=== PATIENT | female | born 1935 | race Caucasian/White ===

== ENCOUNTER 2018-03-18 11:24 | Outpatient (CLI) | payer MEDICARE, BC, SELFPAY ==
--- NOTE | 2018-03-18 11:55 | DI.RAD_ITS ---
SYMPTOM/DIAGNOSIS: UPPER BACK PAIN, DORSALGIA, M54.9, EX SMOKER, THORACIC PAIN , M54.6 PA AND LATERAL CHEST: The heart is not enlarged. The lungs appear clear and well expanded with probable changes of COPD. No pleural effusion is seen. CONCLUSION: No evidence of acute disease. THORACIC SPINE: Three views were obtained. There is a slight left convex thoracic scoliosis. There is loss of intervertebral disc space height throughout the thoracic region. No compression fracture identified. Mild endplate degenerative spurring noted. CONCLUSION: DJD of the thoracic spine.
== END 2018-03-18 11:44 ==
PROVIDERS: PCP Family Medicine; Visit Provider Family Medicine
DX: M47.814 Spondylosis without myelopathy or radiculopathy, thoracic region (principal); M54.6 Pain in thoracic spine; Z87.891 Personal history of nicotine dependence
CPT/HCPCS: 71046; 72072

== ENCOUNTER 2018-10-02 01:36 | Outpatient (CLI) | payer MEDICARE, BC, SELFPAY ==
[2018-10-02 11:12] LABS: ALT 25 U/L (12-78); AST 23 U/L (15-37); Albumin 3.7 g/dL (3.4-5.0); Alkaline Phosphatase 134 U/L (46-116); Anion Gap 10.1 mmol/L (3-11); BUN 13 mg/dL (7-18); Bilirubin, Total 0.4 mg/dL (0.2-1.0); CO2 28.9 mmol/L (21.0-32.0); CREATININE 0.76 mg/dL (0.55-1.02); Calcium 9.3 mg/dL (8.5-10.1); Calculated LDL 147; Chloride 95 mmol/L (98-107); Cholesterol 237 mg/dL (50-200); Glucose 92 mg/dL (70-100); HDL Cholesterol 78 mg/dL (40-60); Potassium 3.6 mmol/L (3.5-5.1); Sodium 134 mmol/L (136-145); Total Protein 6.9 g/dL (6.4-8.2); Triglyceride 60 mg/dL (30-150)
== END 2018-10-02 01:56 ==
PROVIDERS: PCP Family Medicine; Visit Provider Family Medicine
DX: I10 Essential (primary) hypertension (principal); E78.00 Pure hypercholesterolemia, unspecified
CPT/HCPCS: 36415; 80053; 80061; 83721

== ENCOUNTER 2018-10-21 14:57 | Outpatient (CLI) | payer MEDICARE, BC, SELFPAY ==
--- NOTE | 2018-10-21 12:00 | DI.RAD_ITS ---
SYMPTOM/DIAGNOSIS: LOW BACK PAIN S/P FALL N54.5 LUMBAR SPINE: There is no evidence of an acute fracture. There is disc space narrowing seen at an end plate osteophyte formation seen at L1-2 and L4-5. Facet degenerative changes are seen greatest at L5-S1. No spondylolysis or spondylolisthesis is seen. The aorta shows calcification and is normal in diameter. There is a calcified uterine fibroid. IMPRESSION: Degenerative change. No acute abnormality
== END 2018-10-21 15:17 ==
PROVIDERS: PCP Family Medicine; Visit Provider Family Medicine
DX: M54.5 Low back pain (principal); W19.XXXA Unspecified fall, initial encounter; M47.817 Spondylosis without myelopathy or radiculopathy, lumbosacral region
CPT/HCPCS: 72110

== ENCOUNTER 2019-08-15 09:47 | Outpatient (CLI) | payer MEDICARE, BC, SELFPAY ==
--- NOTE | 2019-08-15 11:02 | DI.RAD_ITS ---
EXAM: XR WRIST, hand and forearm RT COMPLETE CLINICAL HISTORY: wrist, hand, forearm bruised pain s/p fall, W19.XXXA. TECHNIQUE: 2D digital imaging was performed. COMPARISON: XR HAND RT COMPLETE from 08/15/2019 XR FOREARM RT from 08/15/2019 FINDINGS: BONES: There is a nondisplaced fracture of the distal metaphysis of the right radius. No bony destru ctive lesion is seen. The bones are osteopenic. JOINTS: The carpal bones are normally aligned. Degenerative changes are seen within the wrist and azul d. The findings are most marked at the 1st carpometacarpal joint. SOFT TISSUE: Soft tissue swelling around the wrist. IMPRESSION: Nondisplaced fracture of the distal metaphysis of the right radius. DATA REPOSITORY: RADIATION DOSE DELIVERED:
== END 2019-08-15 10:07 ==
PROVIDERS: PCP Family Medicine; Visit Provider Nurse Practitioner Family
DX: M79.641 Pain in right hand (principal); M79.631 Pain in right forearm; M25.531 Pain in right wrist; S52.591A Other fractures of lower end of right radius, initial encounter for closed fracture; W19.XXXA Unspecified fall, initial encounter; M18.11 Unilateral primary osteoarthritis of first carpometacarpal joint, right hand; M79.89 Other specified soft tissue disorders; M85.88 Other specified disorders of bone density and structure, other site
CPT/HCPCS: 73090; 73110; 73130

== ENCOUNTER 2019-08-27 10:57 | Outpatient (CLI) | payer MEDICARE, BC, SELFPAY ==
--- NOTE | 2019-08-27 10:30 | DI.RAD_ITS ---
EXAM: XR WRIST RT LIMITED CLINICAL HISTORY: f/u TECHNIQUE: COMPARISON: XR WRIST RT COMPLETE from 08/15/2019 FINDINGS: Two views were obtained. Previously described fracture of the distal radius is again noted with no g ross interval change in alignment of the fracture fragments comparison with previous examination of A pril . IMPRESSION:
== END 2019-08-27 11:17 ==
PROVIDERS: PCP Family Medicine; Referring Provider Nurse Practitioner Family; Visit Provider Orthopaedic Surgery
DX: S52.591D Other fractures of lower end of right radius, subsequent encounter for closed fracture with routine healing (principal); S52.91XA Unspecified fracture of right forearm, initial encounter for closed fracture; W19.XXXA Unspecified fall, initial encounter; I10 Essential (primary) hypertension
CPT/HCPCS: 99201; 99213; 73100; L3908

== ENCOUNTER 2019-09-24 09:57 | Outpatient (CLI) | payer MEDICARE, BC, SELFPAY ==
--- NOTE | 2019-09-24 09:30 | DI.RAD_ITS ---
EXAM: XR WRIST RT COMPLETE INDICATION: f/u. COMPARISON: CR XR WRIST RT LIMITED from 08/27/2019 TECHNIQUE: 2D digital imaging was performed. FINDINGS: Has been no change in alignment of the intra-articular distal radial fracture. There is increased c allus formation around the fracture site. Severe degenerative changes are again noted at the 1st car pal metacarpal joint. DATA REPOSITORY: RADIATION DOSE DELIVERED:
== END 2019-09-24 10:17 ==
PROVIDERS: PCP Family Medicine; Referring Provider Family Medicine; Visit Provider Orthopaedic Surgery
DX: S52.591D Other fractures of lower end of right radius, subsequent encounter for closed fracture with routine healing (principal); M18.11 Unilateral primary osteoarthritis of first carpometacarpal joint, right hand; S52.91XD Unspecified fracture of right forearm, subsequent encounter for closed fracture with routine healing; X58.XXXD Exposure to other specified factors, subsequent encounter; I10 Essential (primary) hypertension
CPT/HCPCS: 99213; 73110

== ENCOUNTER 2020-04-08 05:19 | Outpatient (CLI) | payer MEDICARE, BC, SELFPAY ==
[2020-04-08 10:43] LABS: HCT 41.5 % (36.0-46.0); HGB 14.4 g/dL (11.2-15.7); MCH 32.7 pg (27.0-33.0); MCHC 34.7 % (32.0-36.0); MCV 94.1 fL (80-95); MPV 8.6 fL (8.0-11.0); Platelet Count 326 10^3/uL (130-400); RBC 4.41 10^6/uL (3.93-5.22); RDW 11.9 % (11.7-14.6); RDW-SD 41.3 fL; WBC 7.01 10^3/uL (4.4-10.8)
[2020-04-08 12:09] LABS: ALT 21 U/L (14-59); AST 21 U/L (15-37); Albumin 3.8 g/dL (3.4-5.0); Alkaline Phosphatase 151 U/L (46-116); BUN 14 mg/dL (7-18); Bilirubin, Total 0.6 mg/dL (0.2-1.0); Calcium 9.4 mg/dL (8.5-10.1); Calculated LDL 132 mg/dL (<100); Chloride 96 mmol/L (98-107); Cholesterol 228 mg/dL (<200); Glucose 98 mg/dL (74-106); HDL Cholesterol 80 mg/dL (40-60); Potassium 3.7 mmol/L (3.5-5.1); Sodium 133 mmol/L (136-145); TSH (W/Ref FT4) 0.37 uIU/mL (0.36-3.74); Total Protein 6.9 g/dL (6.4-8.2); Triglyceride 82 mg/dL (<150)
[2020-04-09 10:00] LABS: Hepatitis C Ab w Rflx HCV PCR Negative (Negative)
== END 2020-04-08 05:39 ==
PROVIDERS: PCP Family Medicine; Visit Provider Family Medicine
DX: I10 Essential (primary) hypertension (principal); R00.2 Palpitations; R42 Dizziness and giddiness; F03.90 Unspecified dementia, unspecified severity, without behavioral disturbance, psychotic disturbance, mood disturbance, and anxiety; Z11.59 Encounter for screening for other viral diseases
CPT/HCPCS: 36415; 80053; 80061; 85027; 86803; 84443; 93225

== ENCOUNTER 2020-04-08 05:33 | Outpatient (RCR) | payer MEDICARE, BC, SELFPAY ==
--- NOTE | 2020-04-08 11:00 | HOLTER_ITS ---
APPROVED REPORT Exam Type: HOLTER MONITOR APPLICATION Reason for Test: palpitation Patient Location: O Conclusion This is a 24-hour Holter monitor ordered for the indication of palpitations. ???The patient was in normal sinus rhythm for the majority of the recording with an average heart rat e of 82 bpm. ???There were 10 episodes of supraventricular tachycardia with the longest lasting 30 beats. There w ere frequent (4.8%) PACs. ???There were no episodes of ventricular tachycardia and no PVCs. ???There were no episodes of atrial fibrillation, no pauses greater than 3 seconds and no evidence of high degree heart block. ???A significant amount of artifact affected the interpretation of the study.
== END 2020-04-29 23:59 | disposition home or self-care (01) ==
LOC: RT 05:33
PROVIDERS: PCP Family Medicine; Visit Provider Family Medicine
DX: R00.2 Palpitations (principal); I47.2 Ventricular tachycardia
CPT/HCPCS: 93227; 93225; 93226

== ENCOUNTER 2020-04-28 01:46 | Outpatient (CLI) | payer MEDICARE, BC, SELFPAY ==
--- NOTE | 2020-04-28 07:15 | DI.US_ITS ---
EXAM: US CAROTID CLINICAL HISTORY: dizzy,R42 TECHNIQUE: Ultrasound performed using standard protocol. COMPARISON: US SOFT TISSUE UPPER/LOWER EXT US from 10/04/2016 FINDINGS: Duplex evaluation carotid circulation was performed according to the usual protocol. Note is made 18 millimeter in diameter left thyroid lobe nodule, thyroid ultrasound recommended for further evaluati on. There is moderate visible atheromatous plaque in the carotid bifurcations bilaterally. Common caroti d arteries show normal flow velocities bilaterally. There is flow velocity elevation in both internal carotid arteries, consistent with stenosis of 50-69 percent of the luminal diameter of these vessels. Flow velocities in excess of 230 cm/second also n oted in proximal external carotid artery the right. There is bilateral antegrade vertebral flow. IMPRESSION: Bilateral internal carotid artery stenosis of 50-69 percent of the luminal diameter of right and left internal carotid arteries. High-grade stenosis proximal right external carotid artery. Incidental left thyroid lobe nodule, thyroid ultrasound suggested for further evaluation. DATA REPOSITORY:
== END 2020-04-28 02:06 ==
PROVIDERS: PCP Family Medicine; Visit Provider Family Medicine
DX: I65.23 Occlusion and stenosis of bilateral carotid arteries (principal); E04.1 Nontoxic single thyroid nodule
CPT/HCPCS: 93880

== ENCOUNTER 2020-04-29 01:55 | Outpatient (CLI) | payer MEDICARE, BC, SELFPAY ==
--- NOTE | 2020-04-29 07:15 | DI.US_ITS ---
APPROVED REPORT EXAM: Comprehensive 2D, Doppler, and color-flow Echocardiogram Patient Location: Out-Patient Indications: Dizzy spells, Tricuspid valve disorder Other Information Study Quality: Adequate Conclusion Normal left ventricular wall thickness and chamber size. Estimated ejection fraction is 60%. Wall m otion is normal Normal right ventricular size and systolic function Both atria are normal in size Trileaflet aortic valve with trace regurgitation Moderate mitral annular calcification. Trace mitral regurgitation Tricuspid valve is structurally normal with mild to moderate regurgitation. Estimated right ventricu lar systolic pressure is normal The pulmonic valve is not well visualized Wall motion Left Ventricle The left ventricle is normal size. The left ventricular systolic function is normal. The left ventric ular ejection fraction is within the normal range. There is normal left ventricular wall thickness. T here is normal LV segmental wall motion. There is no ventricular septal defect visualized. LVEF is 60 %. Right Ventricle The right ventricle is normal size. The right ventricular systolic function is normal. The RVSP is 25 .8 mmHg. Atria The left atrium size is normal. The right atrium size is normal. The interatrial septum is intact wit h no evidence for an atrial septal defect. Aortic Valve Aortic valve is trileaflet. There is no aortic valvular stenosis. Trace aortic regurgitation. Trace t o mild aortic regurgitation. Mild aortic regurgitation. Mild to moderate aortic regurgitation. Modera te aortic regurgitation. Moderate to severe aortic regurgitation Moderate aortic regurgitation. Mild to moderate aortic regurgitation. Mild aortic regurgitation. Trace to mild aortic regurgitation. Trac e aortic regurgitation. Mitral Valve Moderate mitral annular calcification. No evidence of mitral valve stenosis. Trace mitral regurgitati on. Tricuspid Valve The tricuspid valve is normal in structure. There is no tricuspid valve stenosis. Mild to moderate tr icuspid regurgitation. Pulmonic Valve Pulmonic valve is not well visualized. There is no pulmonic valvular stenosis. There is no pulmonic v alvular regurgitation. Great Vessels The aortic root is normal in size. The ascending aorta is normal in size. Aortic arch is normal in ca liber. IVC is normal in size and collapses >50% with inspiration. Pericardium There is no pericardial effusion. 2D Dimensions IVSD d PLAX 0.88 cm F: 0.6-1.0 LV Vol A2C d MOD 56.6 mL LVPW d PLAX 0.85 cm F: 0.6 - 1.0 LV Vol A4C d MOD 63.3 mL LVID d PLAX 4.22 cm F: 3.8 - 5.2 LA vol/ BSA A2C s A-L 21.1 mL/m2 LVDs 2.95 cm F: 2.2 - 3.5 LA vol/ BSA A4C s A-L 31.1 mL/m2 Ao Root d 2.74 cm F: 2.7 - 3.3 LA Vol/ BSA Biplane s A-L 27.1 mL/m2 RA Area A4C 13.99 cm2 LA Area A4C s MOD 18.82 cm2 RA Vol/ BSA A4C s A-L 18.9 mL/m2 LA Area A2C s MOD 14.64 cm2 Ao Asc Diam d 3.23 cm F: 2.3 - 3.1 LV EF A4C MOD 59.6 % LV EF Teichholz 56.1 % LV EF A2C MOD 57.2 % LVEF (Waggoner's) 55.78 % F: 54 - 74 LV EF Biplane MOD 55.8 % LV Volume 48.12 mL F: 46 - 106 SV 33.54 mL LV Volume Index 28.98 mL/m2 F: 29 - 61 SV Index 20.14 mL/m2 LV Vol Biplane MOD 60.1 mL FS 29.00 % LV Diastology MV E' medial 0.056 (>0.07 m/s) E/A Ratio 0.7 LV E/e MED 17.25 (<14) MV E Vmax 0.97 (0.4-1.3 m/s) MV E' lateral 0.053 (>0.1 m/s) MV A Vmax 1.45 (0.4-1.3 m/s) LV E/e LAT 18.35 (<14) MV E/A Ratio 0.65 MV E/E' medial 17.26 MV E/E' lateral 18.38 Aortic Valve LVOT Area 2.48 cm2 AoV Area Vmax 2.22 cm2 LVOT Vmax 1.12 m/s AoV Area/ BSA (Vmax) 1.33 cm2/m2 LVOT Mean Daniel. 0.67 m/s SANGEETA Mean Daniel. 1.91 cm2 LVOT Peak Grad 5.0 mmHg SANGEETA Mean Daniel. Index 1.15 cm2/m2 LVOT Mean Grad 2.2 mmHg LVOT VTI 0.221 m LVOT Diam s 1.75 cm AoV Vmax 1.25 m/s Velocity Ratio 0.89 AoV Mean Daniel. 0.87 m/s AoV Peak Grad 6.2 mmHg LVOT SV 54.75 mL AoV Mean Grad 3.4 mmHg AoV VTI 0.226 m AoV Area VTI 2.42 cm2 AoV Area/ BSA (VTI) 1.45 cm/m2 Mitral Valve MV DT 288 (160-240 msec) MV PHT 83 msec MV Area PHT 2.64 cm2 MV VTI 0.335 m MV VTI Annulus 0.336 m MV Area VTI 1.64 (4.0-6.0 cm2) Pulmonary Valve PV Vmax 0.99 (0.5-1.5 m/s) RVOT Peak Gr. 2.75 mmHg PV Peak Grad 4.0 mmHg RVOT Mean Gr. 1.40 mmHg PV Mean Grad 1.8 mmHg RVOT VTI 0.176 m PV VTI 0.197 m RVOT Vmax 0.83 m/s Tricuspid Valve TV Vmax 0.45 (0.3-1.0 m/s) TR Vmax 2.39 m/s TR Peak Grad 22.7 mmHg RA Pressure 3.00 mmHg RVSP (TR) 25.8 mmHg
== END 2020-04-29 02:15 ==
PROVIDERS: PCP Family Medicine; Visit Provider Family Medicine
DX: I10 Essential (primary) hypertension (principal); I07.1 Rheumatic tricuspid insufficiency
CPT/HCPCS: 93306

== ENCOUNTER 2020-06-21 02:19 | Outpatient (CLI) | payer MEDICARE, BC, SELFPAY ==
--- NOTE | 2020-06-21 07:30 | DI.US_ITS ---
EXAM: US THYROID CLINICAL HISTORY: thyroid nodule,e04.1. TECHNIQUE: Ultrasound thyroid performed using standard protocol. COMPARISON: US US ECHOCARDIOGRAM from 04/29/2020 FINDINGS: Both thyroid lobes are slightly prominent in size, as is the isthmus. Right thyroid lobe measures 2.6 x 2.4 cm by 6.3 cm craniocaudal. There are no focal nodules evident in the right lobe. Small colloid cyst is noted anteriorly Isthmus: Slightly thickened, measuring 9 millimeters. No nodules. Left thyroid lobe measures 2.6 x 2.4 x 6.3 cm, similar to the opposite side. It contains a single we ll-defined nodule which measures 2.1 x 1.4 x 2.3 cm and has spongiform appearance; otherwise isoechoi c to the gland; not taller than wider and also exhibits smooth margins. No evidence of internal echo genic foci and no extrathyroid extension. TR 1 IMPRESSION: THERE IS A SOLITARY 21 X 14 X 23 MILLIMETER BENIGN-APPEARING NODULE IN THE LEFT THYROID LOBE DESCR IBED ABOVE. RECOMMEND FOLLOW-UP ULTRASOUND IN 1 YEAR, EARLIER IF CLINICALLY INDICATED. DATA REPOSITORY:
== END 2020-06-21 02:20 ==
LOC: DI 02:19
PROVIDERS: PCP Family Medicine; Visit Provider Family Medicine
DX: E04.1 Nontoxic single thyroid nodule (principal)
CPT/HCPCS: 76536

== ENCOUNTER 2021-09-19 04:10 | Outpatient (CLI) | payer MEDICARE, BC, SELFPAY ==
[2021-09-19 13:20] LABS: ALT 22 U/L (14-59); AST 25 U/L (15-37); Albumin 3.8 g/dL (3.4-5.0); Alkaline Phosphatase 144 U/L (46-116); Anion Gap 9.3 mmol/L (3-11); BUN 14 mg/dL (7-18); Bilirubin, Total 0.6 mg/dL (0.2-1.0); CO2 27.7 mmol/L (21.0-32.0); CREATININE 0.9 mg/dL (0.55-1.02); Calcium 9.3 mg/dL (8.5-10.1); Chloride 102 mmol/L (98-107); Estimated GFR 59.65 (mL/min/1.73m2); Glucose 86 mg/dL (74-106); Sodium 139 mmol/L (136-145); Total Protein 6.8 g/dL (6.4-8.2)
== END 2021-09-19 04:11 | disposition home or self-care (01) ==
LOC: LOS 04:10
PROVIDERS: PCP Family Medicine; Visit Provider Family Medicine
DX: I10 Essential (primary) hypertension (principal); F03.90 Unspecified dementia, unspecified severity, without behavioral disturbance, psychotic disturbance, mood disturbance, and anxiety
CPT/HCPCS: 36415; 80053

== ENCOUNTER 2021-12-02 10:56 | Observation (INO) | payer MEDICARE, BC, SELFPAY ==
[2021-12-02] VITALS (85 sets, daily range): BP systolic 68–170; BP diastolic 27–139; PULSE 51–84; RESP 9–32; TEMP 36.4–37; O2SAT 93–100
--- NOTE | 2021-12-02 10:45 | RT.EKG_ITS ---
APPROVED REPORT Exam: Resting ECG Reason for Exam: weakness Patient Location: E HR:58 bpm ECG Measurements Heart Rate 58 AXIS OH 222 P 64 QRSd 92 QRS 26 QT 443 T 37 QTc 434 Conclusion Sinus bradycardia...rate< 60 Prolonged OH interval...OH >220, V-rate 50- 90. Sinus. Normal axis. No STEMI. I have reviewed and interpreted ECG and agree with software generated interpretation.
--- NOTE | 2021-12-02 11:15 | DI.CT_ITS ---
Exam(s) CT HEAD WO EXAM: CT HEAD WO CLINICAL HISTORY: Dizziness, syncope. TECHNIQUE: Imaging Protocol: Axial computed tomography images with coronal and sagittal reformatted images were created and reviewed COMPARISON: No exams were available for comparison FINDINGS: Ventricles and Extra axial spaces: Normal in size and morphology for the patient's age. Hemorrhage: None. Cerebral parenchyma: There are areas of decreased attenuation in the white matter most consistent wit h small vessel ischemic disease. No acute territorial infarct is present. Midline shift: None. Brainstem/Cerebellum: Normal. Calvarium: Normal. Visualized Paranasal sinuses/Mastoids: Clear. Soft Tissues: Unremarkable. IMPRESSION: 1. No acute intracranial process 2. Results of this exam have been verbally communicated with provider. RADIATION DOSE DELIVERED: 723.85mGy.cm Total DLP DATA REPOSITORY: All CT scans at this facility are submitted to the National Radiology Data Registry (NRDR) Dose Index Registry (DIR) with the [employer] ([employer]). RADIATION OPTIMIZATION: All CT scans at this facility use at least one of these dose optimization te chniques: automated exposure control; mA and/or kV adjustment per patient size (includes targeted exa ms where dose is matched to clinical indication); or iterative reconstruction.
--- NOTE | 2021-12-02 11:24 | ED.GENADUL_ITS ---
Discharge Plan Disposition Patient Disposition: [facility] INPATIENT Condition: Stable Discharge Details Clinical Impression: Syncope and collapse Admit Date/Time: 12/02/21 18:45 Admit Provider: Ata Thakkar Attending Provider: Rony Voss Primary Care Provider: Xiomara Lopez ED Provider: Elba Delaney Discharge Data Discharge Date/Time-TO BE ENTERED AT DEPARTURE: 12/02/21 22:04 Medical Decision Making <Roldan Ballard NP - Last Filed: 12/03/21 08:51> Patient presenting to the emergency department via EMS for chief complaint of dizziness. Family does suspect 2 syncopal episodes with EMS noting hypotension upon arrival. Patient reports that she was working in her garden when she became dizzy and sat down. Denies any injury or trauma, headache, or pain anywhere. Patient does have significant past medical history of carotid stenosis, thyroid nodule, hypertension, dementia. Physical exam shows no obvious stroke findings, horizontal nystagmus mainly with left lateral gaze, otherwise unremarkable exam. While I feel this could be a vertiginous type event given patient's history we will do thorough work-up including starting with a head CT and possible consideration of MRI. Will treat patient's symptoms with Zofran and meclizine pending results. Please see physician interpretation for full interpretation of EKG but EKG does show sinus bradycardia with a rate of 58, there is noted prolonged ME interval but otherwise EKG is nondiagnostic. Review of labs show a unremarkable CBC, CMP with slight hypokalemia at 3.2, alk phos of 125, initial troponin is nondetectable and negative, all other labs nondiagnostic. Still pending urinalysis. Spoke to radiologist regarding CT imaging of the head which she states is negative. Urinalysis is also reviewed and is negative for any acute findings and specifically no findings to suggest infection. Patient pending delta troponin. Reviewed delta troponin which is negative. Reassessed patient and continues to have nystagmus and dizziness and now states slight headache. Given the patient had syncope with diaphoresis, continued symptoms and not improving we will plan on performing MRI of the brain after speaking with radiologist. <KATELYNN Celaya - Last Filed: 12/02/21 21:48> Patient presenting to the emergency department via EMS for chief complaint of dizziness. Family does suspect 2 syncopal episodes with EMS noting hypotension upon arrival. Patient reports that she was working in her garden when she became dizzy and sat down. Denies any injury or trauma, headache, or pain anywhere. Patient does have significant past medical history of carotid stenosis, thyroid nodule, hypertension, dementia. Physical exam shows no obvious stroke findings, horizontal nystagmus mainly with left lateral gaze, otherwise unremarkable exam. While I feel this could be a vertiginous type event given patient's history we will do thorough work-up including starting with a head CT and possible consideration of MRI. Will treat patient's symptoms with Zofran and meclizine pending results. Please see physician interpretation for full interpretation of EKG but EKG does show sinus bradycardia with a rate of 58, there is noted prolonged ME interval but otherwise EKG is nondiagnostic. Review of labs show a unremarkable CBC, CMP with slight hypokalemia at 3.2, alk phos of 125, initial troponin is nondetectable and negative, all other labs nondiagnostic. Still pending urinalysis. Spoke to radiologist regarding CT imaging of the head which she states is negative. Urinalysis is also reviewed and is negative for any acute findings and specifically no findings to suggest infection. Patient pending delta troponin. Reviewed delta troponin which is negative. Reassessed patient and continues to have nystagmus and dizziness and now states slight headache. Given the patient had syncope with diaphoresis, continued symptoms and not improving we will plan on performing MRI of the brain after speaking with radiologist. Care accepted in transition from ED, nurse practitioner, positive for syncope, will admit Still symptomatic with standing, describes fluttering Also reports some right calf tenderness shortness of breath, will order cardiac CTA this was a negative study per radiology review agreeable to admission at this time HPI <Roldan Ballard NP - Last Filed: 12/03/21 08:51> General Mode of arrival: EMS . Date/Time Provider Initiated Documentation: 12/02/21 11:03 . Limitations to Documentation: no limitations . Information obtained by: patient, family, EMS and RN notes reviewed . History of Present Illness 86 year old F presents to the emergency department with the chief complaint of Dizziness, syncope, described as moderate, Quality is described as other (Denies pain or discomfort), Patient started experiencing this minute(s) (90) and it has been constant. No relieving factors improve symptom(s), No exacerbating factors reported . Patient notes no other symptoms.. Patient did receive the following treatments prior to arrival, other (IV fluids per EMS) Related Data Home Medications Medication Instructions Recorded Confirmed aspirin 81 mg tablet,delayed 81 mg PO DAILY 10/12/20 12/02/21 release donepezil 10 mg tablet See Rx Instructions PO BID #90 tabs 04/26/21 12/02/21 hydrochlorothiazide 25 mg tablet 25 mg PO DAILY #90 tab-caps 09/19/21 12/02/21 memantine 5 mg tablet (Namenda) 5 mg PO BID #180 tabs 09/19/21 12/02/21 mirtazapine 15 mg tablet 15 mg PO QHS #90 tabs 09/19/21 12/02/21 potassium chloride 20 mEq 20 meq PO DAILY #90 tabs 09/19/21 12/02/21 tablet,extended release(part/cryst) Previous Rx's Medication Instructions Recorded donepezil 10 mg tablet See Rx Instructions PO BID #90 tabs 04/26/21 hydrochlorothiazide 25 mg tablet 25 mg PO DAILY #90 tab-caps 09/19/21 memantine 5 mg tablet (Namenda) 5 mg PO BID #180 tabs 09/19/21 mirtazapine 15 mg tablet 15 mg PO QHS #90 tabs 09/19/21 potassium chloride 20 mEq 20 meq PO DAILY #90 tabs 09/19/21 tablet,extended release(part/cryst) Allergies Allergy/AdvReac Type Severity Reaction Status Date / Time lisinopril Allergy Intermediate DIZZINESS Verified 12/02/21 11:18 lovastatin AdvReac Unknown MYALGIAS Verified 12/02/21 11:18 General Stated Complaint: Dizzy/Sync KYMBERLY: 3 Review of Systems <Roldan Ballard NP - Last Filed: 12/03/21 08:51> Constitutional Constitutional: Denies body ache(s), Denies chills, Denies fever(s), Denies frequent falls, Denies headache(s) and Denies malaise Eyes Eyes: Denies change in vision ENT Ears, Nose, Mouth, and Throat: Reports dizziness and Denies headache(s) Cardiovascular Cardiovascular: Denies chest pain, Reports syncope, Denies irregular heart rhythm and Denies dyspnea Respiratory Respiratory: Denies cough and Denies dyspnea Gastrointestinal Gastrointestinal: Denies abdominal pain, Reports nausea and Denies vomiting Genitourinary Genitourinary: Reports system reviewed and no additional complaints, except as documented Musculoskeletal Musculoskeletal: Reports system reviewed and no additional complaints, except as documented Integumentary/Breasts Skin/Breast: Reports system reviewed and no additional complaints, except as documented Neurologic Neurologic: Reports as per HPI, Denies behavioral changes, Reports dizziness, Reports syncope, Denies frequent falls, Denies headache(s), Denies localized weakness and Denies sensory deficit Psychiatric Psychiatric: Denies behavioral changes PFS <Roldan Ballard NP - Last Filed: 12/03/21 08:51> All Active Problems Syncope and collapse (Acute) Advanced care planning/counseling discussion (Acute) Thyroid nodule (Acute) 2.6 by 2.4 by 6.3 reassess in 1 yr Carotid stenosis (Acute) high grade, R external carotid Dementia (Chronic) Dizziness (Acute) Palpitation (Acute) Nondisplaced fracture of right radius (Acute) Low back pain (Acute) 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) Osteopenia (Chronic) T-SCORES OF -1.2, -0.8, -1.1 Non-toxic uninodular goiter (Chronic) Lichen planus (Chronic 06/27/06) bx - lichen sclerosis Hypercholesterolemia (Chronic) Hemorrhoids (Chronic) INTERNAL; LOCATED AT 6:00 GERD (gastroesophageal reflux disease) (Chronic 08/21/13) Essential hypertension (Chronic 02/14/13) 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 Chronic pain of both knees (Chronic 06/27/16) Cervical arthritis (Chronic 08/21/13) 08/11 - multi level DDD/DJD Actinic keratosis (Chronic) Medical History Abnormal weight loss Closed dislocation of coccyx (10/29/07) Closed fracture of sacrum and coccyx without spinal cord injury with delayed healing Elevation of level of transaminase and lactic acid dehydrogenase (LDH) (04/06/08) Encounter for HCV screening test for low risk patient Low back pain (03/29/95) laminectomy L4-5 S1 Malignant neoplasm of skin Palpitations (12/30/15) Pancreatitis (03/29/01) Peptic ulcer Polymyalgia rheumatica (07/31/11) Premature beats Right arm pain Right foot pain (12/22/13) Seborrheic keratosis (11/15/16) Smoker Thyroid nodule Surgical History section X 1 Dilation and curettage Excision, Lipoma 11/28/16; LEFT BUTTOCK, non-malignant. Extraction of cataract (~05/2002) LEFT EYE History of cataract removal with insertion of prosthetic lens History of section LAMINECTOMY (~1995) FOR EXPLORATION L4-5, S1 LASER EYE SURGERY (~06/2009) LUMPECTOMY (~02/2010) UTERUS RETN.EYE SURGERY (~08/2001) Status post trigger finger release Trigger Finger release (~09/2010) WRIST/ARM SURGERY (~12/2009) Family History Mother , 85 Heart disease Father , 35 Brain tumor Sister , 86 Heart disease Brother , 80s Essential hypertension Heart disease Melanoma family history Essential hypertension Heart disease Hypothyroidism Neoplasm Prostatitis Brother No problems noted. Maternal Grandfather No problems noted. Paternal Grandfather No problems noted. Maternal Grandmother No problems noted. Paternal Grandmother No problems noted. Son , Accident at age 15. No problems noted. Sister No problems noted. Brother , Lived 1/2 hour only No problems noted. Social History Smoking/Tobacco Use Status: Former Tobacco Use tobacco type: cigarettes Tobacco: How many years used: 10 Second Hand Exposure: Yes Smoking risk assessment performed?: Yes Alcohol Intake: current Alcohol Intake frequency: a few times a week Alcohol type: beer, wine and hard liquor Drug use: Never Substance use type: does not use Household members: spouse and children Pets and animals: Yes Pets and animals: dog(s) and horse(s) Mag/Zoroastrian: Jehovah'S Witness Do you feel safe at home: Yes Do you feel safe in your relationship?: Yes Exam <Roldan Ballard NP - Last Filed: 12/03/21 08:51> Const General: cooperative, healthy appearing, no acute distress and well groomed Orientation: alert, awake and oriented x3 [facility] Head: normal to inspection Ears: hearing grossly normal bilaterally and TM's normal bilaterally Mouth: oral mucosae normal and moist mucous membranes Throat: posterior oropharynx normal Eyes Visual Coronel: normal visual coronel by confrontation Alignment and Position: alignment normal Periorbital: periorbital findings normal Eyelids: eyelids normal Sclera: sclerae normal Pupils: PERRL EOM: EOM intact bilaterally and nystagmus (Horizontal with left lateral gaze) Neck Neck: normal visual inspection, full ROM, no lymphadenopathy and no meningeal signs Resp Effort & Inspection: normal respiratory effort and able to speak in complete sentences Auscultation: clear to auscultation bilaterally Cardio Rate: regular rate Rhythm: regular rhythm Heart Sounds: S1 normal and S2 normal Neuro General: patient alert, patient awake, patient oriented x3, tone normal, moves all extremities, CN's II-XI intact bilaterally and not confused Cranial Nerves: nystagmus (Horizontal with left lateral gaze) Cognition: normal cognition Speech: speech normal Motor: muscle tone normal throughout, strength 5/5 throughout, no pronator drift, no movement abnormalities noted and no fasciculations Sensory Exam: no sensory deficits noted Coordination: [id number] test normal, Does not sway with eyes open, rapid alternating movement UE normal and rapid alternating movement LE normal Course <Roldan Ballard NP - Last Filed: 12/03/21 08:51> Vital Signs Vital signs: Vital Signs Temperature 36.4 C L 12/02/21 10:56 Pulse 60 12/02/21 10:56 Respiratory Rate 18 12/02/21 10:56 Blood Pressure 143/63 H 12/02/21 10:56 Pulse Oximetry 100 12/02/21 10:56 Temperature 36.4 C L 12/02/21 10:56 Pulse 60 12/02/21 10:56 Respiratory Rate 18 12/02/21 10:56 Blood Pressure 143/63 H 12/02/21 10:56 Blood Pressure Position Supine 12/02/21 10:56 Pulse Oximetry 100 12/02/21 10:56 Oxygen Delivery Method Room Air 12/02/21 10:56 Oxygen Flow Rate 0 12/02/21 10:56 Pain Level 0 12/02/21 10:56 Sign Out <Roldan Ballard NP - Last Filed: 12/03/21 08:51> Sign Out Data: Sign Out Comment: Patient pending MRI results and disposition based upon results and reassessment Last updated by Roldan Ballard NP at 12/02/21 15:42
[2021-12-02 11:25] LABS: Abs Immature Grans 0.03 10^3/uL (0.0-0.06); Absolute Basophil Count 0.03 10^3/uL (0.0-0.2); Absolute Eosinophil Count 0.04 10^3/uL (0.0-0.7); Absolute Lymphocyte Count 1.51 10^3/uL (1.2-3.4); Absolute Monocyte Count 0.33 10^3/uL (0.1-0.8); Absolute Neutrophil Count 3.24 10^3/uL (1.2-6.7); Basophils % 0.6; Eosinophils % 0.8; HCT 39.3 % (36.0-46.0); HGB 13.2 g/dL (11.2-15.7); Immature Grans % 0.6; Lymphocytes % 29.2; MCH 30.1 pg (27.0-33.0); MCHC 33.6 % (32.0-36.0); MCV 90 fL (80-95); MPV 8.8 fL (8.0-11.0); Monocytes % 6.4; Neutrophils % 62.4; Platelet Count 259 10^3/uL (130-400); RBC 4.38 10^6/uL (3.93-5.22); RDW 12.2 % (11.7-14.6); RDW-SD 40.2 fL; WBC 5.18 10^3/uL (4.4-10.8)
[2021-12-02 11:42] LABS: ALT 22 U/L (14-59); AST 23 U/L (15-37); Albumin 3.7 g/dL (3.4-5.0); Alkaline Phosphatase 125 U/L (46-116); Anion Gap 5.9 mmol/L (3-11); BUN 15 mg/dL (7-18); Bilirubin, Total 0.5 mg/dL (0.2-1.0); CO2 29.1 mmol/L (21.0-32.0); Calcium 8.8 mg/dL (8.5-10.1); Chloride 101 mmol/L (98-107); Estimated GFR 52.82 (mL/min/1.73m2); Glucose 102 mg/dL (74-106); Magnesium 1.9 mg/dL (1.8-2.4); Potassium 3.2 mmol/L (3.5-5.1); Sodium 136 mmol/L (136-145); Total Protein 7.1 g/dL (6.4-8.2); Troponin I < 50 ng/L (<or=60)
[2021-12-02] MEDS: Ondansetron 4 MG/2 ML VIAL IVP (12:02)
[2021-12-02] MEDS: Meclizine 25 MG TAB PO (12:02)
[2021-12-02] MEDS: Potassium Chloride Liquid 20 MEQ PKT 40 MEQ PO (12:15)
[2021-12-02 12:40] LABS: Bilirubin Negative (Negative); Blood Negative (Negative); Clarity Clear (Clear); Glucose Negative (Negative); Ketones Negative (Negative); Leukocyte Esterase Negative (Negative); Nitrite Negative (Negative); Urobilinogen 0.2 EU/dL (Up TO 0.2)
--- NOTE | 2021-12-02 14:00 | RT.EKG_ITS ---
APPROVED REPORT Exam: Resting ECG Reason for Exam: REPEAT EKG Patient Location: E HR:58 bpm ECG Measurements Heart Rate 58 AXIS WI 218 P 64 QRSd 89 QRS 18 QT 433 T 40 QTc 425 Conclusion Sinus bradycardia...rate< 60 Borderline prolonged WI interval...WI >212, V-rate 50- 90. Sinus. Normal axis. No STEMI. I have reviewed and interpreted ECG and agree with software generated interpretation.
[2021-12-02 14:36] LABS: Troponin I < 50 ng/L (<or=60)
--- NOTE | 2021-12-02 14:48 | DI.MRI_ITS ---
Exam(s) MR BRAIN WO EXAM: MR BRAIN WO CLINICAL HISTORY: Dizziness, headache TECHNIQUE: Multiplanar multisequence MRI of the brain was performed. COMPARISON: CT CT HEAD WO from 12/02/2021 FINDINGS: VENTRICLES AND EXTRA AXIAL SPACES: Normal in size and morphology for the patient's age. MIDLINE SHIFT: None. CEREBRAL PARENCHYMA: No focus of restricted diffusion to suggest acute infarct. No space-occupying le brian identified. There are multiple areas of hyperintense signal in the white matter on the T2 and FL AIR images most consistent with small vessel ischemic disease. HEMORRHAGE: None. BRAINSTEM/CEREBELLUM: Normal. CALVARIUM: Normal. VISUALIZED PARANASAL SINUSES/MASTOIDS:Clear. [place]: Normal flow void. PIT[place]ARY GLAND: Unremarkable. OTHER FINDINGS: None. IMPRESSION: 1. No acute intracranial process. 2. Results of this exam have been verbally communicated with provider. DATA REPOSITORY:
[2021-12-02] MEDS: Normal Saline 500 ML IV (15:00)
--- NOTE | 2021-12-02 16:45 | DI.CT_ITS ---
Exam(s) CT CHEST PE CTA EXAM: CT CHEST PE CTA CLINICAL HISTORY: shortness of breath, syncope, calf pain. TECHNIQUE: Imaging Protocol: Axial CT angiography was performed with multi-slice acquisition and mu lti-planar reconstructions as well as axial, coronal and sagittal MIP reconstructions. CONTRAST MATERIAL: Intravenous: Omnipaque 350 Contrast volume:65 ml COMPARISON: CT CHEST ABD PELVIS WITH CONTRAST from 02/11/2010 CR XR thoracic spine complete from 03/18/2018 CR XR CHEST 2V PA LATERAL from 03/18/2018 FINDINGS: Pulmonary Arteries: No evidence of filling defect to suggest pulmonary emboli. Tracheobronchial tree: Patent where visualized. Mediastinum and [place]: No dominant adenopathy or fluid collection. Pulmonary parenchyma: Mild centrilobular and paraseptal emphysema. Mild fibrotic changes. Dependent changes at lung bases. No consolidation or dominant measurable mass. Pleura: No effusion or pneumothorax. Heart: The heart is mildly dilated. coronary artery calcifications are seen. Aorta: Thoracic aorta heavily calcified. No aneurysm. No dissection. Upper abdomen: Unremarkable. Bones: Degenerative disc changes greatest in mid thoracic region. Tubes, Catheters, and Lines: IMPRESSION: No evidence of pulmonary embolism or other acute abnormality . RADIATION DOSE DELIVERED: 428.7mGy.cm Total DLP DATA REPOSITORY: All CT scans at this facility are submitted to the National Radiology Data Registry (NRDR) Dose Index Registry (DIR) with the [employer] (ACR). RADIATION OPTIMIZATION: All CT scans at this facility use at least one of these dose optimization te chniques: automated exposure control; mA and/or kV adjustment per patient size (includes targeted exa ms where dose is matched to clinical indication); or iterative reconstruction.
[2021-12-02] MEDS: Omnipaque 350 MG/ML 100 ML BTL IJ (16:59)
[2021-12-02 17:46] LABS: Source Nasal/Nares
[2021-12-02 18:01] LABS: TSH (W/Ref FT4) 0.31 uIU/mL (0.36-3.74)
--- NOTE | 2021-12-02 18:13 | DI.VRAD_ITS ---
PROCEDURE INFORMATION: Exam: CTA Chest With Contrast Exam date and time: 12/02/2021 4:59 PM Age: 86 years old Clinical indication: Other: Shortness of breath, syncope, calf pain TECHNIQUE: Imaging protocol: Computed tomographic angiography of the chest with contrast. 3D rendering (Not supervised by radiologist): MIP and/or 3D reconstructed images were created by the technologist. Contrast material: OMNIPAQUE 350; Contrast volume: 65 ml; Contrast route: INTRAVENOUS (IV); COMPARISON: CR XR CHEST 2V PA LATERAL 03/18/2018 12:00 PM FINDINGS: Pulmonary arteries: No main, lobar or segmental pulmonary arterial embolism. Aorta: Atherosclerosis. No aortic aneurysm. Lungs: There is mild centrilobular and paraseptal emphysema. There are scattered subpleural reticular opacities. Pleural spaces: Unremarkable. No pneumothorax. No pleural effusion. Heart: Unremarkable. No cardiomegaly. No pericardial effusion. Lymph nodes: Unremarkable. No enlarged lymph nodes. Bones/joints: T12 and L1 nonaggressive hemangiomata. Soft tissues: Unremarkable. Other findings: Images are degraded by patient respiratory motion artifact. IMPRESSION: 1. No pulmonary arterial embolism. 2. Mild emphysema with fibrosis. Dictated and Authenticated by: Lobo Miller MD. Ordering:[id number] Arreola MD
[2021-12-02 18:38] LABS: COVID-19 PCR Negative (Negative)
--- NOTE | 2021-12-02 18:42 | HPE_ITS ---
Date of service: 12/02/21 Time of Service: 18:42 Assessment and Plan Assessment and plan (1) Syncope and collapse: Start date: 12/02/21 Status: Acute Assessment and plan: This is an 86-year-old lady admitted for syncopal episode with a history of syncope most of her life. She had increased activity with decreased hydration the day of admission. She is doing well status post hydration in the ED with labs unrevealing other than low potassium. Imaging was unrevealing. Patient will be evaluated for increased activity with PT and OT if needed. Neurological consultation as needed but this could be done as an outpatient. Patient is a full code. (2) Dementia: Status: Chronic Assessment and plan: Mild with no evidence of significant dysfunction at this time. Continue outpatient medications. (3) HTN (hypertension): Status: Chronic Assessment and plan: Monitor on usual medications like him for orthostasis. Check vital signs with orthostatic measurements. Adjust medical therapy as needed. (4) Hypokalemia: Status: Chronic Assessment and plan: Patient is chronically on potassium supplements which may increase with Her does have appointment with Esequiel esteves in the ED. He will increase from 20 mg to 40 mg daily and this may be something she can continue at home. Monitor labs as an outpatient. History of Present Illness History of Present Illness Chief Complaint: Syncope Narrative: This is an 86-year-old female patient who presented to the ED with an episode of syncope after she felt dizzy and was witnessed to be passed out without seizure activity but incontinent of urine by family who were EMS. There is no mention of bradycardia and the patient had no significant injuries. She felt that she may have helped her self to the ground as she felt dizzy and syncopal. Evalua tion in ED revealed no injury and imaging was unrevealing. The patient gives a history of passing out since she was a child usually associated with incontinence of urine. She was known to faint and it would usually put her head between her legs to avoid fainting. She usually would have some slight nausea as well. Provocation was usually not eating and the patient did have a long day working outside with minimal intake of fluids. At the time I saw the patient she was at baseline and had no other complaints. The patient is chronically on hydrochlorothiazide for blood pressure control and potassium supplement. She does have a slightly low potassium which will be repleted orally and IV if needed. She did receive some IV fluids in the ED but was not continued on IV fluids being awake and eating and drinking well. He does have mild dementia which has not manifested during conversation. Review of Systems Narrative: 13 point review of systems otherwise unrevealing and stable. 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) Osteopenia (Chronic) T-SCORES OF -1.2, -0.8, -1.1 Non-toxic uninodular goiter (Chronic) Lichen planus (Chronic 06/27/06) bx - lichen sclerosis Hypercholesterolemia (Chronic) Hemorrhoids (Chronic) INTERNAL; LOCATED AT 6:00 GERD (gastroesophageal reflux disease) (Chronic 08/21/13) Essential hypertension (Chronic 02/14/13) 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 Chronic pain of both knees (Chronic 06/27/16) Cervical arthritis (Chronic 08/21/13) 08/11 - multi level DDD/DJD Actinic keratosis (Chronic) Medical History Abnormal weight loss Closed dislocation of coccyx (10/29/07) Closed fracture of sacrum and coccyx without spinal cord injury with delayed healing Elevation of level of transaminase and lactic acid dehydrogenase (LDH) (1 06/07/07) Encounter for HCV screening test for low risk patient Low back pain (03/29/95) laminectomy L4-5 S1 Malignant neoplasm of skin Palpitations (12/30/15) Pancreatitis (03/29/01) Peptic ulcer Polymyalgia rheumatica (07/31/11) Premature beats Right arm pain Right foot pain (12/22/13) Seborrheic keratosis (11/15/16) Smoker Thyroid nodule Surgical History section X 1 Dilation and curettage Excision, Lipoma 11/28/16; LEFT BUTTOCK, non-malignant. Extraction of cataract (~05/2002) LEFT EYE History of cataract removal with insertion of prosthetic lens History of section LAMINECTOMY (~1995) FOR EXPLORATION L4-5, S1 LASER EYE SURGERY (~06/2009) LUMPECTOMY (~02/2010) UTERUS RETN.EYE SURGERY (~08/2001) Status post trigger finger release Trigger Finger release (~09/2010) WRIST/ARM SURGERY (~12/2009) Family History Mother , 85 Heart disease Father , 35 Brain tumor Sister , 86 Heart disease Brother , 80s Essential hypertension Heart disease Melanoma family history Essential hypertension Heart disease Hypothyroidism Neoplasm Prostatitis Brother No problems noted. Maternal Grandfather No problems noted. Paternal Grandfather No problems noted. Maternal Grandmother No problems noted. Paternal Grandmother No problems noted. Son , Accident at age 15. No problems noted. Sister No problems noted. Brother , Lived 1/2 hour only No problems noted. Social History Smoking/Tobacco Use Status: Former Tobacco Use tobacco type: cigarettes Tobacco: How many years used: 10 Second Hand Exposure: Yes Smoking risk assessment performed?: Yes Alcohol Intake: current Alcohol Intake frequency: a few times a week Alcohol type: beer, wine and hard liquor Drug use: Never Substance use type: does not use Household members: spouse and children Pets and animals: Yes Pets and animals: dog(s) and horse(s) Mag/Zoroastrianism: Sabianism Do you feel safe at home: Yes Do you feel safe in your relationship?: Yes Meds Allergies and Home Medications Allergies Allergy/AdvReac Type Severity Reaction Status Date / Time lisinopril Allergy Intermediate DIZZINESS Verified 12/02/21 11:18 lovastatin AdvReac Unknown MYALGIAS Verified 12/02/21 11:18 Home Medications Medication Instructions Recorded Confirmed Type aspirin 81 mg tablet,delayed 81 mg PO DAILY 10/12/20 12/02/21 History release donepezil 10 mg tablet See Rx Instructions PO BID #90 tabs 04/26/21 12/02/21 Rx hydrochlorothiazide 25 mg tablet 25 mg PO DAILY #90 tab-caps 09/19/21 12/02/21 Rx memantine 5 mg tablet (Namenda) 5 mg PO BID #180 tabs 09/19/21 12/02/21 Rx mirtazapine 15 mg tablet 15 mg PO QHS #90 tabs 09/19/21 12/02/21 Rx potassium chloride 20 mEq 20 meq PO DAILY #90 tabs 09/19/21 12/02/21 Rx tablet,extended release(part/cryst) Exam Narrative Exam Narrative: General: Patient appears appropriate age, alert and oriented x3 and in no acute distress. HEENT: Normocephalic, eyes with pupils equal and reactive to light symmetrically with no nystagmus to lateral gaze. Extraocular movements intact and sclera are anicteric. Oropharynx with moist mucosa and poor dentition with missing teeth. Neck: Supple without JVD. Back: Slightly kyphotic with no CVA tenderness. Lungs: Clear to auscultation percussion. Heart: Regular rate and rhythm with no murmurs or gallops appreciated. Breast: Exam deferred. Abdomen: Normal contour, soft and nontender to palpation with no palpable hepatosplenomegaly. Rectal: Exam deferred. Extremities: Without clubbing, cyanosis or pitting edema. Peripheral pulses palpable. Good capillary refill. Skin: Slightly pale, warm and dry. Good turgor. Neuro: Cranial nerves II to XII gross intact, no nystagmus. No tremor. No focalizing motor deficits. Psych: Normal affect and mood. No abnormal thought processes. Remote and recent memory grossly intact by exam with a history of mild dementia on treatment. Results Imaging Imaging Studies: Exam: CTA Chest With Contrast Exam date and time: 12/02/2021 4:59 PM Age: 86 years old Clinical indication: Other: Shortness of breath, syncope, calf pain TECHNIQUE: Imaging protocol: Computed tomographic angiography of the chest with contrast. 3D rendering (Not supervised by radiologist): MIP and/or 3D reconstructed images were created by the technologist. Contrast material: OMNIPAQUE 350; Contrast volume: 65 ml; Contrast route: INTRAVENOUS (IV);? COMPARISON: CR XR CHEST 2V PA LATERAL 03/18/2018 12:00 PM FINDINGS: Pulmonary arteries: No main, lobar or segmental pulmonary arterial embolism. Aorta: Atherosclerosis. No aortic aneurysm. Lungs: There is mild centrilobular and paraseptal emphysema. There are scattered subpleural reticular opacities. Pleural spaces: Unremarkable. No pneumothorax. No pleural effusion. Heart: Unremarkable. No cardiomegaly. No pericardial effusion. Lymph nodes: Unremarkable. No enlarged lymph nodes. Bones/joints: T12 and L1 nonaggressive hemangiomata. Soft tissues: Unremarkable. Other findings: Images are degraded by patient respiratory motion artifact. IMPRESSION: 1. No pulmonary arterial embolism. 2. Mild emphysema with fibrosis. EXAM: ? MR BRAIN WO CLINICAL HISTORY:? Dizziness, headache TECHNIQUE:? Multiplanar multisequence MRI of the brain was performed. COMPARISON:? CT CT HEAD WO from 12/02/2021 FINDINGS: VENTRICLES AND EXTRA AXIAL SPACES: Normal in size and morphology for the patient's age. MIDLINE SHIFT: None. CEREBRAL PARENCHYMA: No focus of restricted diffusion to suggest acute infarct. No space-occupying lesion identified. There are multiple areas of hyperintense signal in the white matter on the T2 and FLAIR images most consistent with small vessel ischemic disease. HEMORRHAGE: None. BRAINSTEM/CEREBELLUM: Normal. CALVARIUM: Normal.? VISUALIZED PARANASAL SINUSES/MASTOIDS:Clear. PICAYUNE OF BURRIS: Normal flow void. PITUITARY GLAND: Unremarkable. OTHER FINDINGS: None. IMPRESSION: 1. No acute intracranial process. Exam(s) CT HEAD WO EXAM: ? CT HEAD WO CLINICAL HISTORY: ? Dizziness, syncope. ? TECHNIQUE:? Imaging Protocol: Axial computed tomography images with coronal and sagittal reformatted images were created and reviewed COMPARISON:? No exams were available for comparison FINDINGS: Ventricles and Extra axial spaces: Normal in size and morphology for the patient's age. Hemorrhage: None. Cerebral parenchyma: There are areas of decreased attenuation in the white genaro er most consistent with small vessel ischemic disease.? No acute territorial infarct is present.? Midline shift: None. Brainstem/Cerebellum: Normal. Calvarium: Normal. Visualized Paranasal sinuses/Mastoids: Clear. Soft Tissues: Unremarkable. IMPRESSION: 1. No acute intracranial process 2. Results of this exam have been verbally communicated with provider. Labs Result diagrams: 12/03/21 06:28 12/03/21 06:28 Labs: Laboratory Results - last 24 hr 12/02/21 12/02/21 12/02/21 11:15 11:15 12:32 WBC 5.18 RBC 4.38 Hgb 13.2 Hct 39.3 MCV 90 MCH 30.1 MCHC 33.6 RDW 12.2 Plt Count 259 MPV 8.8 Immature Gran % 0.6 Neutrophils % 62.4 Lymphocytes % 29.2 Monocytes % 6.4 Eosinophils % 0.8 Basophils % 0.6 Nucleated RBC % 0.0 Absolute Neutrophils 3.24 Absolute Lymphocytes 1.51 Absolute Monocytes 0.33 Absolute Eosinophils 0.04 Absolute Basophils 0.03 Sodium 136 Potassium 3.2 L Chloride 101 Carbon Dioxide 29.1 Anion Gap 5.9 BUN 15 Creatinine 1.0 Estimated GFR/1.73 m2 52.82 Glucose 102 Calcium 8.8 Magnesium 1.9 Total Bilirubin 0.5 AST 23 ALT 22 Alkaline Phosphatase 125 H Troponin I < 50 Total Protein 7.1 Albumin 3.7 TSH Free T4 Urine Color Yellow Urine Clarity Clear Urine pH 6.0 Ur Specific [place] 1.020 Urine Protein Negative Urine Ketones Negative Urine Blood Negative Urine Nitrite Negative Urine Bilirubin Negative Urine Urobilinogen 0.2 Ur Leukocyte Esterase Negative Urine Glucose Negative COVID-19 Source SARS-CoV-2 (PCR) 12/02/21 12/02/21 12/02/21 14:10 14:10 17:43 WBC RBC Hgb Hct MCV MCH MCHC RDW Plt Count MPV Immature Gran % Neutrophils % Lymphocytes % Monocytes % Eosinophils % Basophils % Nucleated RBC % Absolute Neutrophils Absolute Lymphocytes Absolute Monocytes Absolute Eosinophils Absolute Basophils Sodium Potassium Chloride Carbon Dioxide Anion Gap BUN Creatinine Estimated GFR/1.73 m2 Glucose Calcium Magnesium Total Bilirubin AST ALT Alkaline Phosphatase Troponin I < 50 Total Protein Albumin TSH 0.31 L Free T4 1.00 Urine Color Urine Clarity Urine pH Ur Specific [place] Urine Protein Urine Ketones Urine Blood Urine Nitrite Urine Bilirubin Urine Urobilinogen Ur Leukocyte Esterase Urine Glucose COVID-19 Source Nasal/Nares SARS-CoV-2 (PCR) Negative Last Vital Signs Temp 36.7 C 12/02/21 16:21 Pulse 65 08/05/22 18:31 Resp 13 12/02/21 18:31 BP 141/52 H 12/02/21 18:31 Pulse Ox 98 12/02/21 18:31 PAWSS Have you Been Recently Intoxicated or Drunk Within the Last 30 days?: No Have you Ever Experienced Previous Episodes of Alcohol Withdrawal?: No Have you ever Experienced Withdrawal Seizures?: No Have you ever Experienced Delirium Tremens(DT)s?: No Have you ever undergone Alcohol Rehabilitation Treatment (i.e, inpt ot outpatient treatment programs)?: No Have you ever Experienced Blackouts?: No Have you ever Combined Alcohol with other Downers within the last 90 days?: No Have you ever Combined Alcohol with any other Substance of Abuse during the last 90 days?: No Positive Blood Alcohol level on Presentation? [PCS.BAL]: No Evidence of Increased Autonomic Activity (i.e. HR>120, tremor, sweating, agitation, nausea)?: No Result: 0
--- NOTE | 2021-12-02 19:26 | NUR.NOTE ---
pt provided with meal tray Nursing Note:
[2021-12-02] MEDS: Enoxaparin 40 MG/0.4 ML SYR SC (20:23)
[2021-12-02] MEDS: Memantine 5 MG TAB PO (20:24)
[2021-12-02] MEDS: Mirtazapine 15 MG TAB PO (21:46)
[2021-12-02] MEDS: Donepezil 5 MG TAB 10 MG PO (23:51)
[2021-12-03] VITALS: PULSE 64
[2021-12-03 03:49] VITALS: BP 145/72; PULSE 62; TEMP 36.2; O2SAT 98
[2021-12-03 07:29] VITALS: BP 152/81; PULSE 63; RESP 16; TEMP 37; O2SAT 98
[2021-12-03 07:31] LABS: Abs Immature Grans 0.02 10^3/uL (0.0-0.06); Absolute Basophil Count 0.02 10^3/uL (0.0-0.2); Absolute Eosinophil Count 0.09 10^3/uL (0.0-0.7); Absolute Lymphocyte Count 1.91 10^3/uL (1.2-3.4); Absolute Monocyte Count 0.37 10^3/uL (0.1-0.8); Absolute Neutrophil Count 3.66 10^3/uL (1.2-6.7); Basophils % 0.3; Eosinophils % 1.5; HCT 37.3 % (36.0-46.0); HGB 12.3 g/dL (11.2-15.7); Immature Grans % 0.3; Lymphocytes % 31.5; MCH 30.1 pg (27.0-33.0); MCV 91 fL (80-95); MPV 9.5 fL (8.0-11.0); Monocytes % 6.1; Neutrophils % 60.3; Platelet Count 209 10^3/uL (130-400); RBC 4.09 10^6/uL (3.93-5.22); RDW 12.3 % (11.7-14.6); RDW-SD 41.1 fL; WBC 6.07 10^3/uL (4.4-10.8)
[2021-12-03 07:45] LABS: ALT 17 U/L (14-59); AST 24 U/L (15-37); Albumin 3.1 g/dL (3.4-5.0); Alkaline Phosphatase 110 U/L (46-116); Anion Gap 7.2 mmol/L (3-11); BUN 12 mg/dL (7-18); Bilirubin, Total 0.3 mg/dL (0.2-1.0); CO2 24.8 mmol/L (21.0-32.0); CREATININE 0.7 mg/dL (0.55-1.02); Calcium 8.7 mg/dL (8.5-10.1); Chloride 106 mmol/L (98-107); Glucose 85 mg/dL (74-106); Sodium 138 mmol/L (136-145); Total Protein 6.6 g/dL (6.4-8.2)
[2021-12-03 08:01] VITALS: PULSE 64
[2021-12-03] MEDS: Aspirin E.C. 81 MG TABEC PO (08:17)
[2021-12-03] MEDS: Memantine 5 MG TAB PO (08:17)
[2021-12-03] MEDS: Potassium Chloride 20 MEQ TABCR 40 MEQ PO (08:17)
[2021-12-03] MEDS: hydroCHLOROthiazide 25 MG TAB PO (08:17)
--- NOTE | 2021-12-03 09:28 | INITIAL_ITS ---
- If Service Date Differs Date of service: 12/03/21 Time of Service: :28 Care Management Initial Assess REASON FOR HOSPITALIZATION:: Syncope PAST MEDICAL HISTORY/PAST SURGICAL HISTORY:: All Active Problems . Syncope and collapse (Acute). Advanced care planning/counseling discussion (Acute). Thyroid nodule (Acute). 2.6 by 2.4 by 6.3 reassess in 1 yr. Carotid stenosis (Acute). high grade, R external carotid. Dementia (Chronic). Dizziness (Acute). Palpitation (Acute). Nondisplaced fracture of right radius (Acute). Low back pain (Acute). 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 Osteopenia (Chronic). T-SCORES OF -1.2, -0.8, -1.1. 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 bx - lichen sclerosis. Hypercholesterolemia (Chronic). Hemorrhoids (Chronic). INTERNAL; LOCATED AT 6:00. GERD (gastroesophageal reflux disease) (Chronic 08/21/13). Essential hypertension (Chronic 02/14/13). 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 LEFT LUNG ECTASIA. Chronic pain of both knees (Chronic 06/27/16). Cervical arthritis (Chronic 08/21/13). 08/11 - multi level DDD/DJD. Actinic keratosis (Chronic). Medical History . Abnormal weight loss. Closed dislocation of coccyx (10/29/07). Closed fracture of sacrum and coccyx without spinal cord injury with delayed healing. Elevation of level of transaminase and lactic acid dehydrogenase (LDH) (04/06/08). Encounter for HCV screening test for low risk patient. Low back pain (03/29/95). laminectomy L4-5 S1. Malignant neoplasm of skin. Palpitations (12/30/15). Pancreatitis (03/29/01). Peptic ulcer. Polymyalgia rheumatica (07/31/11). Premature beats. Right arm pain. Right foot pain (12/22/13). Seborrheic keratosis (11/15/16). Smoker. Thyroid n odule. Surgical History . section. X 1. Dilation and curettage. Excision, Lipoma. 11/28/16; LEFT BUTTOCK, non-malignant. Extraction of cataract (~05/2002). LEFT EYE. History of cataract removal with insertion of prosthetic lens. History of section. LAMINECTOMY (~1995). FOR EXPLORATION L4-5, S1. LASER EYE SURGERY (~06/2009). LUMPECTOMY (~02/2010). UTERUS. RETN.EYE SURGERY (~08/2001). Status post trigger finger release. Trigger Finger release (~09/2010). WRIST/ARM SURGERY (~12/2009) CODE STATUS:: Full Code (COLST FORM on File)
--- NOTE | 2021-12-03 09:31 | INITIAL_ITS ---
- If Service Date Differs Date of service: 12/03/21 Time of Service: 09:31 Care Management Initial Assess REASON FOR HOSPITALIZATION:: Syncope PAST MEDICAL HISTORY/PAST SURGICAL HISTORY:: All Active Problems . Syncope and collapse (Acute). Advanced care planning/counseling discussion (Acute). Thyroid nodule (Acute). 2.6 by 2.4 by 6.3 reassess in 1 yr. Carotid stenosis (Acute). high grade, R external carotid. Dementia (Chronic). Dizziness (Acute). Palpitation (Acute). Nondisplaced fracture of right radius (Acute). Low back pain (Acute). 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 Osteopenia (Chronic). T-SCORES OF -1.2, -0.8, -1.1. 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 bx - lichen sclerosis. Hypercholesterolemia (Chronic). Hemorrhoids (Chronic). INTERNAL; LOCATED AT 6:00. GERD (gastroesophageal reflux disease) (Chronic 08/21/13). Essential hypertension (Chronic 02/14/13). 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 LEFT LUNG ECTASIA. Chronic pain of both knees (Chronic 06/27/16). Cervical arthritis (Chronic 08/21/13). 08/11 - multi level DDD/DJD. Actinic keratosis (Chronic). Medical History . Abnormal weight loss. Closed dislocation of coccyx (10/29/07). Closed fracture of sacrum and coccyx without spinal cord injury with delayed healing. Elevation of level of transaminase and lactic acid dehydrogenase (LDH) (04/06/08). Encounter for HCV screening test for low risk patient. Low back pain (03/29/95). laminectomy L4-5 S1. Malignant neoplasm of skin. Palpitations (12/30/15). Pancreatitis (03/29/01). Peptic ulcer. Polymyalgia rheumatica (07/31/11). Premature beats. Right arm pain. Right foot pain (12/22/13). Seborrheic keratosis (11/15/16). Smoker. Thyroid n odule. Surgical History . section. X 1. Dilation and curettage. Excision, Lipoma. 11/28/16; LEFT BUTTOCK, non-malignant. Extraction of cataract (~05/2002). LEFT EYE. History of cataract removal with insertion of prosthetic lens. History of section. LAMINECTOMY (~1995). FOR EXPLORATION L4-5, S1. LASER EYE SURGERY (~06/2009). LUMPECTOMY (~02/2010). UTERUS. RETN.EYE SURGERY (~08/2001). Status post trigger finger release. Trigger Finger release (~09/2010). WRIST/ARM SURGERY (~12/2009) PREVIOUS FUNCTIONAL STATUS/SOCIAL/FAMILY SUPPORTS:: Lorena lives in [facility] with her Dima. Has patient been provided with info about the portal/API?: Yes Did the patient sign up for the portal?: No CODE STATUS:: Full Code (COLST FORM ON FILE indicates DNR/DNI.) INSURANCE COVERAGE / FINANCIAL ISSUES:: BS. Medicare PRIMARY CARE PHYSICIAN:: Xiomara Lopez PATIENT/FAMILY EDUCATION NEEDS:: Review discharge instructions and plan to follow up with community providers. ask me three. TRANSPORTATION:: Via private vehicle with family. PLAN:: Anticipate, Lorena will discharge home via private vehicle with family when medically ready. Lorena will follow up with community providers and discharge plan of care as prescribed.
--- NOTE | 2021-12-03 10:19 | PT.INIE ---
PT Notes Visit Reasons: Syncope Physical Therapy Inpatient Initial Evaluation Date: 12/03/21 Referring Doctor: Rony Voss MD PT Orders: PT CONSULT: Limited Ability Precautions: Fall. Standard. Patient Profile/Admitting Diagnosis: Lorena is an 86 yo female that presented to the ER on 12/02/21 for dizziness and syncope episodes. She had been working in the garden and weather was hot and humid. PMHX: See EMR Social History/Home Situation: Lives with spouse, enters home at ground level, but kitchen upstairs (15 steps). No use of AD at baseline. Equipment Owned/DME: Unknown Subjective: Cleared by nursing to see patient and patient is agreeable to PT. Patient is sitting up in chair at time of consult and reports feeling well. Objective: General Observation: Pleasant and alert Mental Status: A&O x3 Pain: No pain ROM: Right Upper Extremity: Shoulder Flexion WFL. Shoulder abduction WFL. Elbow flexion WFL. Wrist flexion WFL. Opening and closing of hand WFL. Left Upper Extremity: Shoulder Flexion WFL. Shoulder abduction WFL. Elbow flexion WFL. Wrist flexion WFL. Opening and closing of hand WFL. Right Lower Extremity: Hip flexion WFL. Hip abduction WFL. Knee flexion WFL. Ankle dorsiflexion WFL. Ankle plantarflexion WFL. Left Lower Extremity: Hip flexion WFL. Hip abduction WFL. Knee flexion WFL. Ankle dorsiflexion WFL. Ankle plantarflexion WFL. Strength: Right Upper Extremity: Shoulder flexors 5/5. Shoulder abductors 5/5. Elbow flexors 5/5. Elbow extensors 5/5. [employer] Production strong. Left Upper Extremity: Shoulder flexors 5/5. Shoulder abductors 5/5. Elbow flexors 5/5. Elbow extensors 5/5. [employer] Manager Production strong. Right Lower Extremity: Hip flexors 5/5. Knee flexors 5/5. Knee extensors 5/5. Ankle dorsiflexors 5/5. Ankle plantarflexors 5/5. Left Lower Extremity: Hip flexors 5/5. Knee flexors 5/5. Knee extensors 5/5. Ankle dorsiflexors 5/5. Ankle plantarflexors 5/5. Sensation: Intact as to pain and pressure on bilateral lower extremities. Bed Mobility/Transfers: Supine to sit: Independent Sit to supine: Independent Sit to stand: Independent Stand to sit: Independent Bed to chair: Independent Chair to bed: Independent Gait: Ambulated 260'x3 with supervision - stair ambulation after 1st loop only, no seated rest Stairs: Ascend/descend set of 5 steps x3 using rails, supervision Balance: Static Sitting: Normal Dynamic Sitting: Good Static Standing: Normal Dynamic Standing: Good Therapeutic Activity (29715) dynamic movement and functional strengthening to improve physical performance: 15 minutes Ambulation and stair ambulation with supervision, reports sensation of light dizziness, but not affecting mobility Static balance screening - good for age Special Tests: Mobility Limitations Standardized Measure [facility] AM-PAC 6 clicks Basic Mobility Inpatient Short Form: Raw Score: 24 CMS Score: 0% Informed Consent/Education: Patient instructed in purpose of PT consult and plan of care. Assessment: Patient presents with clinical signs and symptoms consistent with current/admitting diagnoses that have resulted to mobility limitations, gait instability, generalized weakness, and impairment of motor control as demonstrated by the following impairment level findings: 1. Impaired standing balance Impairments are contributing to the following functional limitations: 1. Increased fall risk Patient is assessed as a Low complexity based on the following: History: 86 year old female with impairment level findings, functional limitations, and past medical history as indicated above Examination: Demonstrable impairment in strength, balance, and mobility level with underlying impairments and functional limitations as documented above Presentation: Stable Decision Making: Low complexity Lorena demonstrates good mobility and is strong throughout upper and lower extremities. Static balance is good. Some path deviation with ambulation, but safe. No acute care PT needs at this time. Plan of Care/Treatment Plan: Evaluation only, discharge from acute care PT. Discharge Plan DISCHARGE RECOMMENDATIONS: Home with outpatient PT for vertigo assessment if symptoms persist TREATMENT CODE/TIME: 9:50-10:19 (29 minutes), [id number], [id number] Thank you for the opportunity to participate in the care of this patient. Shireen Merida, PT, DPT, O[facility] [place], [place]
--- NOTE | 2021-12-03 11:13 | DSE_ITS ---
Date of service: 12/03/21 Time of Service: 11:14 DS: Diagnosis Discharge Diagnosis (1) Syncope and collapse: Status: Acute (2) Dementia: Status: Chronic (3) HTN (hypertension): Status: Chronic (4) Hypokalemia: Status: Chronic Discharge Plan Disposition Patient Disposition: HOME Condition: Stable Discharge Details Reason For Visit: Syncope Admit Date/Time: 12/02/21 18:45 Admit Provider: Ata Thakkar Attending Provider: Rony Voss Primary Care Provider: Xiomara Lopez [facility] Course Hospital Course: This is an 86-year-old female patient who presented to the ED with an episode of syncope after she felt dizzy and was witnessed to be passed out without seizure activity but incontinent of urine by family who were EMS.? There is no mention of bradycardia and the patient had no significant injuries.? She felt that she may have helped her self to the ground as she felt dizzy and syncopal.? Evaluation in ED revealed no injury and imaging was unrevealing.? The patient gives a history of passing out since she was a child usually associated with incontinence of urine.? She was known to faint and it would usually put her head between her legs to avoid fainting.? She usually would have some slight nausea as well.? Provocation was usually not eating and the patient did have a long day working outside with minimal intake of fluids. She had a slightly low potassium which was repleted. She did receive some IV fluids in the ED but was not continued on IV fluids on admission as she was awake and eating and drinking well.? She does have mild dementia which has not manifested during conversation. She has had no dizziness, lightheadedness, N/V/D or fever. Her is here and he agrees she is at baseline. Her labs are unremarkable this morning. She is being discharged to home with the instruction to call to schedule out patient event monitor placement on Sunday12/06/2019. Home Meds and New Rx's Prescriptions: Continued aspirin 81 mg tablet,delayed release (DR/EC) 81 mg PO DAILY donepezil 10 mg tablet See Rx Instructions PO BID Qty: 90 5RF Rx Instructions: 0.5 TAB PO twice a day; hydrochlorothiazide 25 mg tablet 25 mg PO DAILY Qty: 90 4RF memantine [Namenda] 5 mg tablet 5 mg PO BID Qty: 180 5RF mirtazapine 15 mg tablet 15 mg PO QHS Qty: 90 4RF potassium chloride 20 mEq tablet,ER particles/crystals 20 meq PO DAILY Qty: 90 4RF Discharge Instructions Instructions: Dehydration (DC), Near Syncope (DC), Holter Monitor (GEN) Additional Instructions: Hydration should be increased when outside working in warm temperatures. Stand Alone Forms: Nursing Discharge Form Referrals: Specialty Clinics (Cardiology) [Other] (Please call Sunday to make an appointment for cardiac event monitor.) Xiomara Lopez [place], [place] [Primary Care Provider] - (Please call Sunday to Follow up in 1-2 weeks) Activity:: Activity as Tolerated Equipment/Supplies:: No Equipment Needed Diet:: Low Sodium Discharge Orders Discharge Orders: Discharge Order (Routine); Ordered 12/03/21 Ordered By: Daphnie Cerna Other Ambulatory Orders: Cardiac Event Recorder (Routine) Timeframe: 20211205 Facility: [facility] - Location: Respiratory Therapy Ordered By: Daphnie Cerna Discharge Data Discharge Date/Time-TO BE ENTERED AT DEPARTURE: 12/03/21 13:04 DS: Summary Time Spent with Patient providing and/or coordinating discharge services: Less than 30 minutes Status at Discharge Functional status at discharge: independent ambulation Overall status at discharge: patient is back to baseline Mental Status: mental status grossly normal Speech and Movement: speech and movement normal Mood: congruent mood Affect: normal affect Exam Psych Mental Status: mental status grossly normal Speech and Movement: speech and movement normal Mood: congruent mood Affect: normal affect DS: Data Vitals/I&O Vitals and I&O: Vital Signs Temperature 37.0 C 12/03/21 07:29 Temperature Source Tympanic 12/03/21 07:29 Pulse 64 12/03/21 08:01 Pulse Rhythm Regular 12/03/21 03:03 Pulse 61 12/02/21 18:40 Respiratory Rate 16 12/03/21 07:29 Respiratory Effort 12/03/21 03:03 Respiratory Depth Shallow 12/03/21 03:03 Respiratory Pattern Normal 12/03/21 03:03 Blood Pressure 152/81 H 12/03/21 07:29 Blood Pressure Mean 119 12/02/21 19:30 Blood Pressure Position Supine 12/02/21 10:56 Pulse Oximetry 98 12/03/21 07:29 Oxygen Delivery Method Room Air 12/03/21 07:29 Oxygen Flow Rate 0 12/03/21 07:29 Pain Level 0 12/02/21 23:09 Comment 12/03/21 03:49 Intake & Output 12/02/21 12/02/21 12/03/21 11:59 23:59 11:59 Intake Total 722 / 722 Output Total 2 / 401 / 401 Balance 720 / 720 -401 / -401 Weight 67.132 kg 61.518 kg 67.6 kg Intake: IV 500 / 500 Oral 222 / 222 Output: Urine 401 / 401 Other: Urine Color Pale Yellow Yellow Urine Appearance Clear Clear Urine Odor None Normal Stool Characteristics Soft Formed Voiding Methods Toilet Toilet Data Completed and Pending Labs on day of discharge: Labs from last 24 hours 12/03/21 12/03/21 12/02/21 06:28 06:28 17:43 WBC 6.07 RBC 4.09 Hgb 12.3 Hct 37.3 MCV 91 MCH 30.1 MCHC 33.0 RDW 12.3 Plt Count 209 MPV 9.5 Immature Gran % 0.3 Neutrophils % 60.3 Lymphocytes % 31.5 Monocytes % 6.1 Eosinophils % 1.5 Basophils % 0.3 Nucleated RBC % 0.0 Absolute Neutrophils 3.66 Absolute Lymphocytes 1.91 Absolute Monocytes 0.37 Absolute Eosinophils 0.09 Absolute Basophils 0.02 Sodium 138 Potassium 4.0 Chloride 106 Carbon Dioxide 24.8 Anion Gap 7.2 BUN 12 Creatinine 0.7 Estimated GFR/1.73 m2 >= 60.00 Glucose 85 Calcium 8.7 Magnesium Total Bilirubin 0.3 AST 24 ALT 17 Alkaline Phosphatase 110 Troponin I Total Protein 6.6 Albumin 3.1 L TSH Free T4 Urine Color Urine Clarity Urine pH Ur Specific [place] Urine Protein Urine Ketones Urine Blood Urine Nitrite Urine Bilirubin Urine Urobilinogen Ur Leukocyte Esterase Urine Glucose COVID-19 Source Nasal/Nares SARS-CoV-2 (PCR) Negative 12/02/21 12/02/21 12/02/21 14:10 14:10 12:32 WBC RBC Hgb Hct MCV MCH MCHC RDW Plt Count MPV Immature Gran % Neutrophils % Lymphocytes % Monocytes % Eosinophils % Basophils % Nucleated RBC % Absolute Neutrophils Absolute Lymphocytes Absolute Monocytes Absolute Eosinophils Absolute Basophils Sodium Potassium Chloride Carbon Dioxide Anion Gap BUN Creatinine Estimated GFR/1.73 m2 Glucose Calcium Magnesium Total Bilirubin AST ALT Alkaline Phosphatase Troponin I < 50 Total Protein Albumin TSH 0.31 L Free T4 1.00 Urine Color Yellow Urine Clarity Clear Urine pH 6.0 Ur Specific [place] 1.020 Urine Protein Negative Urine Ketones Negative Urine Blood Negative Urine Nitrite Negative Urine Bilirubin Negative Urine Urobilinogen 0.2 Ur Leukocyte Esterase Negative Urine Glucose Negative COVID-19 Source SARS-CoV-2 (PCR) 12/02/21 12/02/21 11:15 11:15 WBC 5.18 RBC 4.38 Hgb 13.2 Hct 39.3 MCV 90 MCH 30.1 MCHC 33.6 RDW 12.2 Plt Count 259 MPV 8.8 Immature Gran % 0.6 Neutrophils % 62.4 Lymphocytes % 29.2 Monocytes % 6.4 Eosinophils % 0.8 Basophils % 0.6 Nucleated RBC % 0.0 Absolute Neutrophils 3.24 Absolute Lymphocytes 1.51 Absolute Monocytes 0.33 Absolute Eosinophils 0.04 Absolute Basophils 0.03 Sodium 136 Potassium 3.2 L Chloride 101 Carbon Dioxide 29.1 Anion Gap 5.9 BUN 15 Creatinine 1.0 Estimated GFR/1.73 m2 52.82 Glucose 102 Calcium 8.8 Magnesium 1.9 Total Bilirubin 0.5 AST 23 ALT 22 Alkaline Phosphatase 125 H Troponin I < 50 Total Protein 7.1 Albumin 3.7 TSH Free T4 Urine Color Urine Clarity Urine pH Ur Specific [place] Urine Protein Urine Ketones Urine Blood Urine Nitrite Urine Bilirubin Urine Urobilinogen Ur Leukocyte Esterase Urine Glucose COVID-19 Source SARS-CoV-2 (PCR) PFSH All Active Problems Hypokalemia (Chronic) HTN (hypertension) (Chronic) Syncope and collapse (Acute) Advanced care planning/counseling discussion (Acute) Thyroid nodule (Acute) 2.6 by 2.4 by 6.3 reassess in 1 yr Carotid stenosis (Acute) high grade, R external carotid Dementia (Chronic) Dizziness (Acute) Palpitation (Acute) Nondisplaced fracture of right radius (Acute) Low back pain (Acute) 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) Osteopenia (Chronic) T-SCORES OF -1.2, -0.8, -1.1 Non-toxic uninodular goiter (Chronic) Lichen planus (Chronic 06/27/06) bx - lichen sclerosis Hypercholesterolemia (Chronic) Hemorrhoids (Chronic) INTERNAL; LOCATED AT 6:00 GERD (gastroesophageal reflux disease) (Chronic 08/21/13) Essential hypertension (Chronic 02/14/13) 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 Chronic pain of both knees (Chronic 06/27/16) Cervical arthritis (Chronic 08/21/13) 08/11 - multi level DDD/DJD Actinic keratosis (Chronic) Medical History Abnormal weight loss Closed dislocation of coccyx (10/29/07) Closed fracture of sacrum and coccyx without spinal cord injury with delayed healing Elevation of level of transaminase and lactic acid dehydrogenase (LDH) (04/06/08) Encounter for HCV screening test for low risk patient Low back pain (03/29/95) laminectomy L4-5 S1 Malignant neoplasm of skin Palpitations (12/30/15) Pancreatitis (03/29/01) Peptic ulcer Polymyalgia rheumatica (07/31/11) Premature beats Right arm pain Right foot pain (12/22/13) Seborrheic keratosis (11/15/16) Smoker Thyroid nodule Surgical History section X 1 Dilation and curettage Excision, Lipoma 11/28/16; LEFT BUTTOCK, non-malignant. Extraction of cataract (~05/2002) LEFT EYE History of cataract removal with insertion of prosthetic lens History of section LAMINECTOMY (~1995) FOR EXPLORATION L4-5, S1 LASER EYE SURGERY (~06/2009) LUMPECTOMY (~02/2010) UTERUS RETN.EYE SURGERY (~08/2001) Status post trigger finger release Trigger Finger release (~09/2010) WRIST/ARM SURGERY (~12/2009) Family History Mother , 85 Heart disease Father , 35 Brain tumor Sister , 86 Heart disease Brother , 80s Essential hypertension Heart disease Melanoma family history Essential hypertension Heart disease Hypothyroidism Neoplasm Prostatitis Brother No problems noted. Maternal Grandfather No problems noted. Paternal Grandfather No problems noted. Maternal Grandmother No problems noted. Paternal Grandmother No problems noted. Son , Accident at age 15. No problems noted. Sister No problems noted. Brother , Lived 1/2 hour only No problems noted. Social History Smoking/Tobacco Use Status: Former Tobacco Use tobacco type: cigarettes Tobacco: How many years used: 10 Second Hand Exposure: Yes Smoking risk assessment performed?: Yes Alcohol Intake: current Alcohol Intake frequency: a few times a week Alcohol type: beer, wine and hard liquor Drug use: Never Substance use type: does not use Household members: spouse and children Pets and animals: Yes Pets and animals: dog(s) and horse(s) Mag/P[employer]: [employer] Do you feel safe at home: Yes Do you feel safe in your relationship?: Yes
[2021-12-03 11:15] VITALS: BP 131/68; PULSE 60; RESP 16; TEMP 36.3; O2SAT 95
--- NOTE | 2021-12-03 13:00 | CMDISCH_ITS ---
- If Service Date Differs Date of service: 12/03/21 Time of Service: 13:00 LACE Index Scoring Tool - Questions: Length of Stay (in days): 1 Acuity (Admit via E.D.?): Yes E.D. Visits: 1 - Answers: Total Score: 5 Risk of Readmission: Low Risk Care Management Discharge Reason for Hospitalization: Syncope Discharge Plan: Lorena is discharged home via private vehicle with family. No new [facility] services are ordered. Lorena will call Cardiology Sunday to make an appointment for a Cardiac Event Recorder. Lorena will also call her PCP office on Sunday and schedule a follow up visit in 1-2 weeks. Patient/Family Education Needs: Review discharge plan, limitations and plan to call PCP and Cardiology on Sunday for appointments. ask me three.
== END 2021-12-03 13:04 | disposition home or self-care (01) ==
LOC: ER 18:59 → MS 19:46
PROVIDERS: Nurse Practitioner Family; Admitting Provider Internal Medicine; Emergency Provider Physician Assistant; PCP Family Medicine; Visit Provider Family Medicine
DX: R55 Syncope and collapse (principal); F03.90 Unspecified dementia, unspecified severity, without behavioral disturbance, psychotic disturbance, mood disturbance, and anxiety; I10 Essential (primary) hypertension; E87.6 Hypokalemia; E78.00 Pure hypercholesterolemia, unspecified; I65.21 Occlusion and stenosis of right carotid artery; R00.1 Bradycardia, unspecified; R94.31 Abnormal electrocardiogram [ECG] [EKG]; Z20.822 Contact with and (suspected) exposure to COVID-19; I95.9 Hypotension, unspecified; E04.1 Nontoxic single thyroid nodule; M54.50 Low back pain, unspecified; M85.80 Other specified disorders of bone density and structure, unspecified site; K64.8 Other hemorrhoids; K21.9 Gastro-esophageal reflux disease without esophagitis; Q33.8 Other congenital malformations of lung
CPT/HCPCS: 36415; 71275; 80053; 87635; 93005; 96360; 96361; 96372; 96374; 97161; 97530; 99285; J1650; 70450; 70551; 81003; 83735; 84439; 84443; 84484; 85025; 93010; 99217; 99220; G0378; J2405; J3490

== ENCOUNTER 2021-12-06 11:51 | Outpatient (CLI) | payer MEDICARE, BC, SELFPAY ==
--- NOTE | 2021-12-13 20:23 | PDOC.EEG_ITS ---
Neurology EEG EEG: [facility] Department of Neurology LONG-TERM AMBULATORY EEG REPORT Date of Recordin12/06/21 at 15:35:40 to 12/07/21 at 06:33:38 Interpreting Physician: Dr. Amy Rasheed PCP/Referring Provider: Dr. Xiomara Lopez Reason for study: Ms. Hill is an 86 year-old woman with reported dementia who had an episode of loss of consciousness concerning for seizure. Current Medications: Home Medications Medication Instructions Recorded Confirmed Type hydrochlorothiazide 25 mg tablet 25 mg PO DAILY #90 tab-caps 09/19/21 12/06/21 Rx memantine 5 mg tablet (Namenda) 5 mg PO BID #180 tabs 09/19/21 12/06/21 Rx mirtazapine 15 mg tablet 15 mg PO QHS #90 tabs 09/19/21 12/06/21 Rx potassium chloride 20 mEq 20 meq PO DAILY #90 tabs 09/19/21 12/06/21 Rx tablet,extended release(part/cryst) donepezil 5 mg tablet 5 mg PO DAILY #14 tabs 12/08/21 Rx METHODS: An 18-channel digitized electroencephalogram was recorded in the ambulatory setting with video. The 10/20 international system of electrode placement was used and bipolar and referential electrode montages were recorded. In addition to EEG the patient was monitored for EKG and by video. Activation procedures of photic stimulation and hyperventilation were performed if applicable. The duration of the recording was ~15 hours, however she took off the monitor 5 hours into the recording. DESCRIPTION OF EEG: Waking background activity: During maximal wakefulness a 7-8-Hz posterior background rhythm was present which was well-modulated, symmetrical, reactive to eye opening, and of moderate voltage. Faster frequencies were present in the bilateral anterior head regions. There was a normal anterior-posterior voltage gradient. Drowsy and sleeping background activity: During drowsiness, there was attenuation of the posterior dominant background rhythm and vertex waves. No sleep was recorded. Overall limited study due to significant muscle and motion artifact throughout the short recording. Interictal abnormalities: none. Ictal findings: No events recorded. Activating Procedures: Photic stimulation was performed but a driving response could not be determined due to muscle artifact. Hyperventilation was not performed. EKG: EKG revealed normal sinus rhythm/sinus bradycardia. INTERPRETATION: This long-term EEG is a limited study but noted to be abnormal due to slowing of the posterior dominant rhythm. PRIOR EEG: none CLINICAL CORRELATION: Limited study due to short duration (patient became agitated and took off electrodes 5 hours into the recording) and significant muscle and motion artifact. What was seen was suggestive of a mild diffuse cerebral encephalopathy of broad differential including toxic-metabolic etiology. No focal regions of cerebral dysfunction or epileptiform activity were clearly present. Clinical correlation is advised. Amy Rasheed MD
== END 2021-12-06 11:52 | disposition home or self-care (01) ==
PROVIDERS: PCP Family Medicine; Visit Provider Family Medicine
DX: R55 Syncope and collapse (principal)
CPT/HCPCS: 95711; 95718

== ENCOUNTER 2021-12-16 02:00 | Outpatient (CLI) | payer MEDICARE, BC, SELFPAY ==
--- NOTE | 2022-02-02 13:52 | W.CARDEVENT ---
Date of service: 02/02/22 Time of Service: 13:53 Cardiac Event Recorder Referring Provider:: Daphnie Cerna Indications:: Syncope Cardiac Event Note: This is a 30-day event monitor ordered for syncope Predominant rhythm was sinus with an average heart rate of 76. Minimum was 57, maximum 110 Atrial and ventricular ectopic beats were seen There was 1 episode of supraventricular tachycardia, rate 173 and another episode of SVT rate 160. These were nonsustained and appeared asymptomatic There was no atrial fibrillation, no high-grade AV block, no pauses greater than 3 seconds No apparent patient's symptoms were reported
== END 2021-12-16 02:01 | disposition home or self-care (01) ==
LOC: RT 02:00
PROVIDERS: PCP Family Medicine; Visit Provider Nurse Practitioner Family
DX: R55 Syncope and collapse (principal)
CPT/HCPCS: 93270

== ENCOUNTER 2022-02-02 13:53 | Outpatient (CLI) | payer MEDICARE, BC, SELFPAY | END 2022-02-02 13:54 | LOC: CARDOPNVT 02-13 09:52 | PROVIDERS: PCP Family Medicine; Referring Provider Nurse Practitioner Family; Visit Provider Internal Medicine Cardiovascular Disease | DX: R55 Syncope and collapse (principal); I47.1 Supraventricular tachycardia | CPT/HCPCS: 93272 ==

== ENCOUNTER → 2022-02-03 00:47 | Outpatient (CLI) | payer MEDICARE, BC, SELFPAY ==
--- NOTE | 2022-02-03 14:00 | DI.US_ITS ---
APPROVED REPORT EXAM: Comprehensive 2D, Doppler, and color-flow Echocardiogram Patient Location: Out-Patient Indications: syncope, diaphoresis, HTN Other Information Study Quality: Adequate Conclusion Normal left ventricular wall thickness and chamber size. Estimated ejection fraction is 60%. Wall m otion is normal Normal right ventricular size and systolic function Both atria are normal in size Aortic valve is sclerotic and trileaflet without stenosis or regurgitation Mild mitral annular calcification. Trace to mild mitral regurgitation Normal tricuspid valve with mild regurgitation. Estimated right ventricular systolic pressure is 23 mmHg Wall motion Left Ventricle The left ventricle is normal size. The left ventricular systolic function is normal. The left ventric ular ejection fraction is within the normal range. There is normal left ventricular wall thickness. T here is normal LV segmental wall motion. There is no ventricular septal defect visualized. LVEF is 59 % Right Ventricle The right ventricle is normal size. The right ventricular systolic function is normal. The RVSP is 22 .6 mmHg. Atria The left atrium size is normal. The right atrium size is normal. The interatrial septum is intact wit h no evidence for an atrial septal defect. Aortic Valve Aortic valve is sclerotic Aortic valve is trileaflet. There is no aortic valvular stenosis. No aortic regurgitation is present. Mitral Valve Mild mitral annular calcification. No evidence of mitral valve stenosis. Trace to mild mitral regurgi tation. Tricuspid Valve The tricuspid valve is normal in structure. There is no tricuspid valve stenosis. Mild tricuspid regu rgitation. Pulmonic Valve The pulmonary valve is normal in structure. There is no pulmonic valvular stenosis. There is no pulmo malcolm valvular regurgitation. Great Vessels The aortic root is normal in size. Ascending aorta is not well visualized. Aortic arch is normal in c aliber. IVC is normal in size and collapses >50% with inspiration. Pericardium There is no pericardial effusion. 2D Dimensions IVSD d PLAX 0.85 cm F: 0.6-1.0 LV Vol A2C d MOD 83.7 mL LVPW d PLAX 0.88 cm F: 0.6 - 1.0 LV Vol A4C d MOD 65.0 mL LVID d PLAX 4.37 cm F: 3.8 - 5.2 LA vol/ BSA A2C s A-L 31.2 mL/m2 LVDs 3.10 cm F: 2.2 - 3.5 LA vol/ BSA A4C s A-L 31.4 mL/m2 Ao Root d 2.72 cm F: 2.7 - 3.3 LA Vol/ BSA Biplane s A-L 34.3 mL/m2 RA Area A4C 15.86 cm2 LA Area A4C s MOD 19.45 cm2 RA Vol/ BSA A4C s A-L 26.2 mL/m2 LA Area A2C s MOD 17.72 cm2 LV EF Teichholz 55.8 % LV EF A4C MOD 60.9 % LVEF (Waggoner's) 58.85 % F: 54 - 74 LV EF A2C MOD 58.1 % LV Volume 59.60 mL F: 46 - 106 LV EF Biplane MOD 58.9 % LV Volume Index 36.12 mL/m2 F: 29 - 61 SV 43.74 mL LV Vol Biplane MOD 74.3 mL SV Index 26.41 mL/m2 FS 28.85 % M-Mode TAPSE 2.45 cm (M/F) >1.7 LV Diastology MV E' medial 0.092 (>0.07 m/s) E/A Ratio 0.7 LV E/e MED 10.40 (<14) MV E Vmax 0.95 (0.4-1.3 m/s) MV E' lateral 0.059 (>0.1 m/s) MV A Vmax 1.30 (0.4-1.3 m/s) LV E/e LAT 16.25 (<14) MV E/A Ratio 0.72 MV E/E' medial 10.41 MV E/E' lateral 16.27 Aortic Valve LVOT Area 2.92 cm2 AoV Area Vmax 2.46 cm2 LVOT Vmax 1.26 m/s AoV Area/ BSA (Vmax) 1.49 cm2/m2 LVOT Mean Daniel. 0.72 m/s SANGEETA Mean Daniel. 2.18 cm2 LVOT Peak Grad 6.4 mmHg SANGEETA Mean Daniel. Index 1.32 cm2/m2 LVOT Mean Grad 2.6 mmHg LVOT VTI 0.273 m LVOT Diam s 1.90 cm AoV Vmax 1.50 m/s Velocity Ratio 0.84 AoV Mean Daniel. 0.97 m/s AoV Peak Grad 8.9 mmHg LVOT SV 79.68 mL AoV Mean Grad 4.3 mmHg AoV VTI 0.277 m AoV Area VTI 2.88 cm2 AoV Area/ BSA (VTI) 1.74 cm/m2 Mitral Valve MV DT 289 (160-240 msec) MV PHT 84 msec MV Area PHT 2.63 cm2 MV VTI 0.431 m MV Area VTI 1.85 (4.0-6.0 cm2) Pulmonary Valve PV Vmax 0.95 (0.5-1.5 m/s) RVOT Peak Gr. 3.11 mmHg PV Peak Grad 3.6 mmHg RVOT Mean Gr. 1.45 mmHg PV Mean Grad 1.8 mmHg RVOT VTI 0.179 m PV VTI 0.182 m RVOT Vmax 0.88 m/s Tricuspid Valve TR Peak Grad 19.5 mmHg TR Vmax 2.21 m/s RA Pressure 3.00 mmHg RVSP (TR) 22.6 mmHg
== END ==
PROVIDERS: PCP Family Medicine; Visit Provider Family Medicine
DX: I10 Essential (primary) hypertension (principal); R55 Syncope and collapse
CPT/HCPCS: 93306

== ENCOUNTER 2022-03-16 03:22 | Outpatient (CLI) | payer MEDICARE, BC, SELFPAY ==
[2022-03-16 12:52] LABS: Hemoglobin A1C 5.5 % (<5.7)
== END 2022-03-16 03:23 | disposition home or self-care (01) ==
LOC: LOS 03:23
PROVIDERS: PCP Family Medicine; Visit Provider Family Medicine
DX: E11.9 Type 2 diabetes mellitus without complications (principal)
CPT/HCPCS: 36415; 83036

== ENCOUNTER 2022-03-30 08:57 | Outpatient (CLI) | payer MEDICARE, BC, SELFPAY ==
--- NOTE | 2022-03-30 08:45 | RT.EKG_ITS ---
APPROVED REPORT Exam: Resting ECG Reason for Exam: palpitations Patient Location: O HR:64 bpm ECG Measurements Heart Rate 64 AXIS PA 183 P 64 QRSd 90 QRS 12 QT 403 T 33 QTc 416 Conclusion Sinus rhythm...normal P axis, V-rate 50- 99 Normal Electrocardiogram
== END 2022-03-30 08:58 | disposition home or self-care (01) ==
LOC: DI.CARD 08:57
PROVIDERS: PCP Family Medicine; Visit Provider Internal Medicine Cardiovascular Disease
DX: R00.2 Palpitations (principal)
CPT/HCPCS: 93010

== ENCOUNTER → 2022-03-30 12:47 | Outpatient (BNVA) | payer MEDICARE, BC, SELFPAY | PROVIDERS: PCP Family Medicine; Referring Provider Family Medicine; Visit Provider Internal Medicine Cardiovascular Disease | DX: R55 Syncope and collapse (principal); R00.2 Palpitations | CPT/HCPCS: 93005; 99203; 99214 ==

== ENCOUNTER 2023-05-02 04:54 | Outpatient (CLI) | payer MEDICARE, BC, SELFPAY ==
[2023-05-02 11:29] LABS: HCT 41.4 % (36.0-46.0); HGB 13.6 g/dL (11.2-15.7); MCH 30.1 pg (27.0-33.0); MCHC 32.9 % (32.0-36.0); MCV 92 fL (80-95); MPV 9.2 fL (8.0-11.0); Platelet Count 281 10^3/uL (130-400); RBC 4.52 10^6/uL (3.93-5.22); RDW 12.6 % (11.7-14.6); WBC 5.67 10^3/uL (4.4-10.8)
[2023-05-02 11:55] LABS: ALT 21 U/L (14-59); AST 23 U/L (15-37); Albumin 3.7 g/dL (3.4-5.0); Alkaline Phosphatase 125 U/L (46-116); Anion Gap 9.3 mmol/L (3-11); BUN 17 mg/dL (7-18); Bilirubin, Total 0.6 mg/dL (0.2-1.0); CO2 25.7 mmol/L (21.0-32.0); CREATININE 1.1 mg/dL (0.55-1.02); Calcium 9.4 mg/dL (8.5-10.1); Chloride 105 mmol/L (98-107); Estimated GFR 49.24 (mL/min/1.73m2); Glucose 90 mg/dL (74-106); Potassium 3.8 mmol/L (3.5-5.1); Sodium 140 mmol/L (136-145); Total Protein 7.3 g/dL (6.4-8.2)
== END 2023-05-02 04:55 | disposition home or self-care (01) ==
LOC: LOS 04:54
PROVIDERS: PCP Family Medicine; Visit Provider Family Medicine
DX: I10 Essential (primary) hypertension (principal); E87.6 Hypokalemia; I49.8 Other specified cardiac arrhythmias
CPT/HCPCS: 36415; 80053; 85027

== ENCOUNTER 2023-12-20 12:06 | Emergency (ER) | payer MEDICARE, BC, SELFPAY ==
[2023-12-20] VITALS (13 sets, daily range): BP systolic 123–187; BP diastolic 36–77; PULSE 57–90; RESP 12–27; TEMP 36.6; O2SAT 94–100
--- NOTE | 2023-12-20 11:45 | RT.EKG_ITS ---
APPROVED REPORT Exam: Resting ECG Reason for Exam: syncopal episode Patient Location: E HR:59 bpm ECG Measurements Heart Rate 59 AXIS DE 208 P 71 QRSd 86 QRS 42 QT 419 T 50 QTc 412 Conclusion Sinus bradycardia. 59 normal axis no stemi
[2023-12-20 12:40] LABS: Abs Immature Grans 0.03 10^3/uL (0.0-0.06); Absolute Basophil Count 0.02 10^3/uL (0.0-0.2); Absolute Eosinophil Count 0.08 10^3/uL (0.0-0.7); Absolute Lymphocyte Count 1.52 10^3/uL (1.2-3.4); Absolute Monocyte Count 0.37 10^3/uL (0.1-0.8); Absolute Neutrophil Count 4.85 10^3/uL (1.2-6.7); Basophils % 0.3 %; Eosinophils % 1.2 %; HCT 38.3 % (36.0-46.0); HGB 12.5 g/dL (11.2-15.7); Immature Grans % 0.4 %; Lymphocytes % 22.1 %; MCH 31.1 pg (27.0-33.0); MCHC 32.6 % (32.0-36.0); MCV 95 fL (80-95); MPV 9.3 fL (8.0-11.0); Monocytes % 5.4 %; Neutrophils % 70.6 %; Platelet Count 241 10^3/uL (130-400); RBC 4.02 10^6/uL (3.93-5.22); RDW 12.3 % (11.7-14.6); RDW-SD 42.9 fL; WBC 6.87 10^3/uL (4.4-10.8)
[2023-12-20 12:59] LABS: Troponin I < 50 ng/L (< or =60)
[2023-12-20 13:05] LABS: ALT 22 U/L (14-59); AST 24 U/L (15-37); Albumin 3.6 g/dL (3.4-5.0); Alkaline Phosphatase 105 U/L (46-116); Anion Gap 7.8 mmol/L (3-11); BUN 15 mg/dL (7-18); Bilirubin, Total 0.42 mg/dL (0.2-1.0); CO2 27.2 mmol/L (21.0-32.0); Chloride 103 mmol/L (98-107); Estimated GFR 54.87 (mL/min/1.73m2); Glucose 122 mg/dL (74-106); Potassium 3.7 mmol/L (3.5-5.1); Sodium 138 mmol/L (136-145); TSH (W/Ref FT4) 1.02 uIU/mL (0.36-3.74); Total Protein 6.7 g/dL (6.4-8.2)
--- NOTE | 2023-12-20 13:12 | DI.RAD_ITS ---
Exam(s) XR CHEST 2V PA LATERAL EXAM: XR CHEST 2V PA LATERAL CLINICAL HISTORY: syncope TECHNIQUE: 2D digital imaging was performed. Two views. COMPARISON: CT CT CHEST PE CTA from 12/02/2021 FINDINGS: HEART: Normal size. Aorta: Not dilated. PULMONARY VASCULATURE: Normal. MEDIASTINUM: Unremarkable. LUNGS: Clear. PLEURAL SPACE: No pleural effusion or pneumothorax. BONE:Unremarkable for age. SOFT TISSUES: Unremarkable. IMPRESSION: No acute abnormality. DATA REPOSITORY: RADIATION DOSE DELIVERED:
--- NOTE | 2023-12-20 13:30 | ED.GENADUL_ITS ---
Discharge Plan Disposition Patient Disposition: Home Condition: Stable Discharge Details Clinical Impression: Syncope Primary Care Provider: Xiomara Lopez ED Provider: Satnam Flores Home Meds and New Rx's Prescriptions: No Action Shingrix (PF) 50 mcg/0.5 mL suspension for reconstitution 0.5 ml IM ONCE Qty: 1 1RF Rx Instructions: as a single dose. Repeat in 2 months diphth,pertus(acell),tetanus 2.5-8-5 Lf-mcg-Lf/0.5mL syringe 0.5 ml IM ONCE Qty: 0.5 0RF Rx Instructions: as a single dose donepezil 10 mg tablet 10 mg PO DAILY Qty: 90 4RF mirtazapine 15 mg tablet 7.5 mg PO QHS Qty: 90 4RF memantine [Namenda] 5 mg tablet 5 mg PO BID Qty: 180 5RF Discharge Instructions Instructions: Vasovagal Response, Fainting, Adult ED Additional Instructions: You were seen in the emergency department for episodes of syncope today, your cardiac workup is negative and I do not suspect any acute emergent pathology. You have had history of syncope in the past, I do recommend that you follow-up with your primary care provider within the next few weeks to receive an updated event monitor which is the long-term heart monitor that you have had in the past as well as an echocardiogram and stress test. Please return to the emergency department for any return of syncope especially with chest pain, dizziness, shortness of breath, sweating. Referrals: Xiomara Lopez MD, [place] [Primary Care Provider] - Discharge Data Discharge Date/Time-TO BE ENTERED AT DEPARTURE: 12/20/23 16:44 HPI General Date/Time Provider Initiated Documentation: 12/20/23 12:32 . HPI Narrative: 88 year-old female presents to ED today by EMS with a chief complaint of syncope- was dropping her off at PT and had a syncopal episode in parked car, then again in waiting room of PT office- has had syncope in the past with OBS admission and negative findings, denies cardiac history with onset today- reports a syncopal event about a month ago as well. Quality described as no chest pain, does not quite remember but patient had witnessed brief syncope with immediate regaining of consciousness, no radiation to fever, shortness of breath, chest pain, cough, hemoptysis, abdominal pain, nausea, weakness. Alejandra rity is described as 0/10 for pain. Palliating factors include nothing specific attempted. Provoking factors include nothing specific. Events leading up to the incident/Associated Symptoms: Patient did receive 4mg Zofran by EMS for mild nausea. Patient not anticoagulated. Related Data Home Medications ?Medication ?Instructions ?Recorded ?Confirmed diphth,pertus(acell),tetanus 2.5 0.5 ml IM ONCE #0.5 mL 05/24/22 06/19/23 Lf unit-8 mcg-5 Lf/0.5mL IM syringe varicella-zoster glycoE [id number] 0.5 ml IM ONCE #1 ea 05/24/22 06/19/23 adj(PF) 50 mcg/0.5 mL IM susp, kit (Shingrix (PF)) memantine 5 mg tablet (Namenda) 5 mg PO BID #180 tabs 12/07/22 06/19/23 donepezil 10 mg tablet 10 mg PO DAILY #90 tabs 03/05/23 06/19/23 mirtazapine 15 mg tablet 7.5 mg (1/2 x 15 mg) PO QHS #90 03/05/23 06/19/23 tabs Previous Rx's ?Medication ?Instructions ?Recorded diphth,pertus(acell),tetanus 2.5 0.5 ml IM ONCE #0.5 mL 05/24/22 Lf unit-8 mcg-5 Lf/0.5mL IM syringe varicella-zoster glycoE [id number] 0.5 ml IM ONCE #1 ea 05/24/22 adj(PF) 50 mcg/0.5 mL IM susp, kit (Shingrix (PF)) memantine 5 mg tablet (Namenda) 5 mg PO BID #180 tabs 12/07/22 donepezil 10 mg tablet 10 mg PO DAILY #90 tabs 03/05/23 mirtazapine 15 mg tablet 7.5 mg (1/2 x 15 mg) PO QHS #90 03/05/23 tabs Allergies Allergy/AdvReac Type Severity Reaction Status Date / Time lisinopril Allergy Intermediate DIZZINESS Verified 06/19/23 09:55 lovastatin AdvReac Unknown MYALGIAS Verified 06/19/23 09:55 General Stated Complaint: Dizzy/Sync KYMBERLY: 3 Review of Systems All systems reviewed & are unremarkable except as noted in HPI and below Exam Narrative Exam Narrative: GENERAL APPEARANCE: Well-nourished, non-toxic, awake and alert, atraumatic, no acute distress. SKIN: Warm, pink, dry, intact, without rashes/lesions/ulcerations. HEAD: Normocephalic, atraumatic, normal hair distribution for gender/age. EYES: Normal conjunctiva, no exudates on lids/lashes. ENT: Nares patent, no circumoral cyanosis, no facial swelling NECK: Supple, trachea midline, painless cervical ROM. LUNGS/CHEST: Lungs CTA bilaterally- no rhonchi/rales/wheezes diffusely, non- labored respirations, normal A/P diameter, symmetrical expansion, no chest wall deformity HEART (CV/PV): Regular rate and rhythm without murmur, no peripheral edema, no JVD, no carotid bruit. ABDOMEN: Soft, non-distended, no guarding, no tenderness. MSK: Normal ROM, no swelling/deformity to bilateral UEs or LEs, moving all extremities without weakness, no cyanosis, spine midline without tenderness, normal curvature. NEURO: Mental Status AAOx4 - alert to person, place, time, events No facial droop, no forehead involvement. Motor: No focal weakness - strength 5/5 in bilateral UEs and LEs, proximal and distal, symmetric. Sensory: sensation intact to light touch globally. Gait normal: patient ambulated without ataxia into ED room. PSYCH: euthymic, cooperative, pleasant, appropriate speech Course Vital Signs Vital signs: Vital Signs Pulse 64 12/20/23 12:02 Respiratory Rate 16 12/20/23 12:02 Blood Pressure 171/48 H 12/20/23 12:02 Pulse Oximetry 96 12/20/23 12:02 Pulse 64 12/20/23 12:02 Respiratory Rate 16 12/20/23 12:02 Respiratory Effort Normal, Non-Labored 12/20/23 12:24 Blood Pressure 171/48 H 12/20/23 12:02 Pulse Oximetry 96 12/20/23 12:02 Lab/Test Results Lab/Test Results: Laboratory Tests Range/Units 12/20/23 12:20 WBC (4.4-10.8) 10^3/uL 6.87 RBC (3.93-5.22) 10^6/uL 4.02 Hgb (11.2-15.7) g/dL 12.5 Hct (36.0-46.0) % 38.3 MCV (80-95) fL 95 MCH (27.0-33.0) pg 31.1 MCHC (32.0-36.0) % 32.6 RDW (11.7-14.6) % 12.3 Plt Count (130-400) 10^3/uL 241 MPV (8.0-11.0) fL 9.3 Immature Gran % % 0.4 Neutrophils % % 70.6 Lymphocytes % % 22.1 Monocytes % % 5.4 Eosinophils % % 1.2 Basophils % % 0.3 Nucleated RBC % (0.0-0.3) % 0.0 Absolute Neutrophils (1.2-6.7) 10^3/uL 4.85 Absolute Lymphocytes (1.2-3.4) 10^3/uL 1.52 Absolute Monocytes (0.1-0.8) 10^3/uL 0.37 Absolute Eosinophils (0.0-0.7) 10^3/uL 0.08 Absolute Basophils (0.0-0.2) 10^3/uL 0.02 Sodium (136-145) mmol/L 138 Potassium (3.5-5.1) mmol/L 3.7 Chloride (98-107) mmol/L 103 Carbon Dioxide (21.0-32.0) mmol/L 27.2 Anion Gap (3-11) mmol/L 7.8 BUN (7-18) mg/dL 15 Creatinine (0.55-1.02) mg/dL 1.0 Est GFR (CKD-EPI 2020) (mL/min/1.73m2) 54.87 Glucose (74-106) mg/dL 122 H Calcium (8.5-10.1) mg/dL 9.0 Total Bilirubin (0.2-1.0) mg/dL 0.42 AST (15-37) U/L 24 ALT (14-59) U/L 22 Alkaline Phosphatase (46-116) U/L 105 Troponin I (< or =60) ng/L < 50 Total Protein (6.4-8.2) g/dL 6.7 Albumin (3.4-5.0) g/dL 3.6 TSH (0.36-3.74) uIU/mL 1.02 Medical Decision Making This dictation utilizes [id number] dictation software and may contain unedited grammatical errors. 88 year-old female presents to ED today by EMS with a chief complaint of syncope- was dropping her off at PT and had a syncopal episode in parked car, then again in waiting room of PT office- has had syncope in the past with OBS admission and negative findings, denies cardiac history with onset today- reports a syncopal event about a month ago as well. Quality described as no chest pain, does not quite remember but patient had witnessed brief syncope with immediate regaining of consciousness, no radiation to fever, shortness of breath, chest pain, cough, hemoptysis, abdominal pain, nausea, weakness. Severity is described as 0/10 for pain. Palliating factors include nothing specific attempted. Provoking factors include nothing specific. Events leading up to the incident/Associated Symptoms: Patient did receive 4mg Zofran by EMS for mild nausea. Patients' medical history: Hypokalemia, dizziness, palpitations, peptic ulcer, high-grade carotid stenosis, tricuspid valve disorder, hypertension. Family and social history: Lives with , eats healthy. Pertinent exam findings / vital signs include benign cardiopulmonary examinati on, no carotid bruit, no JVD, neuro intact, benign abdomen, nontoxic and afebrile. Differential / pathologies of concern include syncope, orthostatic hypotension, not stroke, not sepsis, possible but low likelihood ACS. Diagnostic studies of: -CBC, CMP, serial troponins, TSH, urinalysis, EKG, XR chest. -CBC is benign without any anemia or leukocytosis -CMP is within normal limits, mildly elevated nonfasting glucose -Initial troponin negative, repeat pending at time of signout -TSH within normal limits -UA - sample never provided -EKG shows normal sinus rhythm at 59 bpm with P waves followed by narrow complex QRS with mildly increased HI interval, no acute ST changes of ischemia, no Q waves, poor R wave progression, normal QT QTc -XR Chest no acute pathology Interventions of: -500mL fluid bolus. ED Course/Assessment/Plan: Patient apparently has had a long history of syncope presents with syncope twice today, is 88 years old and may have an element of orthostatic hypotension, does not appear dehydrated there is no acute laboratory abnormalities to suspect emergent cause, troponins are negative, EKG is benign, patient has had event monitors in the past, her heart score is low risk, I discussed this with the patient and her and recommend that they follow-up with her primary care provider to likely obtain another event monitor as well as updated stress and echocardiogram. Counseled to stay hydrated, return to ED for any return of syncope especially with chest pain, dizziness, sweating, shortness of breath. Findings not consistent with acute coronary syndrome, stroke, sepsis, emergent pulmonary pathology. Disposition of Syncope. Patient verbalized understanding of the plan and return to ED criteria and engaged in shared decision making. Medical Records Medical records reviewed: Yes I reviewed the patient's medical records. Medical records narrative: Reviewed prior Event Monitor 2021: Cardiac Event Recorder Referring Provider:: Daphnie Cerna Indications:: Syncope Cardiac Event Note: This is a 30-day event monitor ordered for syncope Predominant rhythm was sinus with an average heart rate of 76. Minimum was 57, maximum 110 Atrial and ventricular ectopic beats were seen There was 1 episode of supraventricular tachycardia, rate 173 and another episode of SVT rate 160. These were nonsustained and appeared asymptomatic There was no atrial fibrillation, no high-grade AV block, no pauses greater than 3 seconds No apparent patient's symptoms were reported Imaging Data Radiologic Study: Attestation: I personally reviewed and interpreted this imaging study as follows: Imaging: X-Ray Radiologist's impression: EXAM: XR CHEST 2V PA LATERAL CLINICAL HISTORY: syncope TECHNIQUE: 2D digital imaging was performed. Two views. COMPARISON: CT CT CHEST PE CTA from 12/02/2021 FINDINGS: HEART: Normal size. Aorta: Not dilated. PULMONARY VASCULATURE: Normal. MEDIASTINUM: Unremarkable. LUNGS: Clear. PLEURAL SPACE: No pleural effusion or pneumothorax. BONE:Unremarkable for age. SOFT TISSUES: Unremarkable. IMPRESSION: No acute abnormality. Lab Data Lab results reviewed: Yes I reviewed the patient's lab results. Labs: Laboratory Tests Range/Units 12/20/23 12/20/23 12:20 15:30 WBC (4.4-10.8) 10^3/uL 6.87 RBC (3.93-5.22) 10^6/uL 4.02 Hgb (11.2-15.7) g/dL 12.5 Hct (36.0-46.0) % 38.3 MCV (80-95) fL 95 MCH (27.0-33.0) pg 31.1 MCHC (32.0-36.0) % 32.6 RDW (11.7-14.6) % 12.3 Plt Count (130-400) 10^3/uL 241 MPV (8.0-11.0) fL 9.3 Immature Gran % % 0.4 Neutrophils % % 70.6 Lymphocytes % % 22.1 Monocytes % % 5.4 Eosinophils % % 1.2 Basophils % % 0.3 Nucleated RBC % (0.0-0.3) % 0.0 Absolute Neutrophils (1.2-6.7) 10^3/uL 4.85 Absolute Lymphocytes (1.2-3.4) 10^3/uL 1.52 Absolute Monocytes (0.1-0.8) 10^3/uL 0.37 Absolute Eosinophils (0.0-0.7) 10^3/uL 0.08 Absolute Basophils (0.0-0.2) 10^3/uL 0.02 Sodium (136-145) mmol/L 138 Potassium (3.5-5.1) mmol/L 3.7 Chloride (98-107) mmol/L 103 Carbon Dioxide (21.0-32.0) mmol/L 27.2 Anion Gap (3-11) mmol/L 7.8 BUN (7-18) mg/dL 15 Creatinine (0.55-1.02) mg/dL 1.0 Est GFR (CKD-EPI 2020) (mL/min/1.73m2) 54.87 Glucose (74-106) mg/dL 122 H Calcium (8.5-10.1) mg/dL 9.0 Total Bilirubin (0.2-1.0) mg/dL 0.42 AST (15-37) U/L 24 ALT (14-59) U/L 22 Alkaline Phosphatase (46-116) U/L 105 Troponin I (< or =60) ng/L < 50 < 50 Total Protein (6.4-8.2) g/dL 6.7 Albumin (3.4-5.0) g/dL 3.6 TSH (0.36-3.74) uIU/mL 1.02 Quality:SDOH Health Related Social Needs: No Data to Display PFSH All Active Problems (Updated 12/20/23 @ 14:22 by KATELYNN Zabala) Syncope (Chronic) Incontinence (Acute) Advanced care planning/counseling discussion (Acute) Carotid stenosis (Acute) high grade, R external carotid Dementia (Chronic) 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) Osteopenia (Chronic) T-SCORES OF -1.2, -0.8, -1.1 Lichen planus (Chronic 06/27/06) bx - lichen sclerosis Hypercholesterolemia (Chronic) Hemorrhoids (Chronic) INTERNAL; LOCATED AT 6:00 GERD (gastroesophageal reflux disease) (Chronic 08/21/13) Essential hypertension (Chronic 02/14/13) 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 Cervical arthritis (Chronic 08/21/13) 08/11 - multi level DDD/DJD Medical History (Updated 12/20/23 @ 14:22 by KATELYNN Zabala) Syncope Hypokalemia Thyroid nodule 2.6 by 2.4 by 6.3 reassess in 1 yr Thyroid nodule Dizziness Palpitation Encounter for HCV screening test for low risk patient Right arm pain Nondisplaced fracture of right radius Low back pain Abnormal weight loss Closed dislocation of coccyx (10/29/07) Closed fracture of sacrum and coccyx without spinal cord injury with delayed healing Elevation of level of transaminase and lactic acid dehydrogenase (LDH) (04/06/08) Malignant neoplasm of skin Pancreatitis (03/29/01) Peptic ulcer Polymyalgia rheumatica (07/31/11) Premature beats Right foot pain (12/22/13) Smoker Seborrheic keratosis (11/15/16) Low back pain (03/29/95) laminectomy L4-5 S1 Palpitations (12/30/15) Chronic pain of both knees (06/27/16) Actinic keratosis Surgical History History of cataract removal with insertion of prosthetic lens History of section Status post trigger finger release WRIST/ARM SURGERY (~12/2009) Trigger Finger release (~09/2010) RETN.EYE SURGERY (~08/2001) section X 1 LUMPECTOMY (~02/2010) UTERUS LASER EYE SURGERY (~06/2009) LAMINECTOMY (~1995) FOR EXPLORATION L4-5, S1 Excision, Lipoma 11/28/16; LEFT BUTTOCK, non-malignant. Dilation and curettage Extraction of cataract (~05/2002) LEFT EYE Family History Mother , 85 Heart disease Father , 35 Brain tumor Sister , 86 Heart disease Brother , 80s Essential hypertension Heart disease Melanoma family history Essential hypertension Heart disease Hypothyroidism Neoplasm Prostatitis Brother No problems noted. Maternal Grandfather No problems noted. Paternal Grandfather No problems noted. Maternal Grandmother No problems noted. Paternal Grandmother No problems noted. Son , Accident at age 15. No problems noted. Sister No problems noted. Brother , Lived 1/2 hour only No problems noted. Social History (Updated 05/24/22 @ 17:33 by Lorene Toro) Smoking/Tobacco Use Status: Former Tobacco Use tobacco type: cigarettes Tobacco: How many years used: 10 Second Hand Exposure: Yes Smoking risk assessment performed?: Yes Alcohol Intake: current Alcohol Intake frequency: a few times a week Alcohol type: beer, wine and hard liquor Drug use: Never Substance use type: does not use Caregiver/Support person: No Household members: spouse and children Housing: house Do you need help understanding health information?: Rarely Pets and animals: Yes Pets and animals: dog(s) and horse(s) Sexually active: Yes Do you think of yourself as: straight/heterosexual Current gender identity: female What is your relationship status?: How often do you talk on the phone with friends or family?: once per week How often do you get together with friends or relatives?: three or more times per week How often do you attend orthodox or evangelical services?: 4 or more times per year Do you belong to any clubs or organized social groups?: no Panel score (0-1 are the most socially isolated patients): 3 What type of physical activity do you participate in: walking Duration: 15-30 minutes/day Frequency: 3-4 times per week Mag/Zoroastrianism: Shinto Seatbelt use: always Drive intox or ride w/intox dray driver: No Do you feel safe at home: Yes Do you feel safe in your relationship?: Yes
[2023-12-20] MEDS: Normal Saline 500 ML IV (13:39)
[2023-12-20 15:55] LABS: Troponin I < 50 ng/L (< or =60)
== END 2023-12-20 16:44 | disposition home or self-care (01) ==
PROVIDERS: Emergency Provider Physician Assistant; PCP Family Medicine
DX: I10 Essential (primary) hypertension; E78.00 Pure hypercholesterolemia, unspecified; Z87.891 Personal history of nicotine dependence; R55 Syncope and collapse
CPT/HCPCS: 80053; 93005; 99285; 71046; 84443; 84484; 85025; 93010; 99284